=== PATIENT | male | born 1970 | race Caucasian/White ===

== ENCOUNTER → 2017-03-20 | Outpatient (CLI) | payer OTHER ==
[~2017-03-20] MED LIST: ALBUTEROL0.09 MG/A2 INH; ATIVAN0.5 MG PO; ATIVAN2 MG PO; AUGMENTIN 875875 MG PO; BACTRIM DS 8001 TA1 PO; BUSPAR15 MG PO; CIPRO500 MG PO; CIPROFLOXACIN500 MG PO; CLARITIN10 MG PO; CLEOCIN150 MG PO; CORICIDIN COUGH1 TAB PO; Ciprofloxacin500 MG PO; DOXYCYCLINE100 M3 PO; FLONASE ALLERG9.9 ML NS; HYDROCODONE BIT1 T11 PO; HYDROXYZINE PAM50 MG PO; IBU800 M1 PO; LEADER NIC21 MG/24 H TD; LORAZEPAM2 MG PO; MILLIPRED5 MG PO; MOBIC15 MG PO; MOBIC7.5 MG PO; MOTRIN800 MG PO; NASAL DECONGEST15 ML NAS; NORCO 325 MG-51 TAB PO; PERCOCET 325 MG1 TA4 PO; PREDNICOT10 MG PO; PREDNICOT20 MG PO; PREDNISONE10 MG PO; PRILOSEC20 M2 PO; PROAIR HFA0.09 MG/AC INH; PROAIR HFA8.5 GM IH; PROVENTIL0.09 MG/A1 INH; QVAR INH; QVAR0.08 MG/AC INH; SEROQUEL50 MG PO; SYMBICORT1 AER INH; TESSALON PERLE200 MG PO; TRAMADOL HCL50 MG PO; TRAZODONE HCL300 MG PO; TRAZODONE HCL50 MG PO; TRIMOX500 MG PO; VIBRAMYCIN100 MG PO; VICO75300 PO; VICODIN 5/500 505 MG PO; Ventolin 02.5 MG/3 M INH; ZITHROMAX Z PA250 MG PO; ZOFRAN4 MG PO
== END | disposition home or self-care (01) ==
LOC: RAD 16:25
DX: M51.36 Other intervertebral disc degeneration, lumbar region (principal); M50.30 Other cervical disc degeneration, unspecified cervical region; M48.07 Spinal stenosis, lumbosacral region

== ENCOUNTER 2018-04-03 18:27 | Emergency (ER) | payer OTHER ==
[~2018-04-03] VITALS: Ht 193 cm; Wt 97.5 kg
--- NOTE | ~2018-04-03 | EKG ---
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
[2018-04-03] MEDS ORDERED: MINIPRESS5 M1 PO (18:38)
[2018-04-03] MEDS ORDERED: GABAPENTIN800 MG PO (18:39)
[2018-04-03] MEDS ORDERED: SUBOXONE 8 MG-1 EACH SL (18:39)
[2018-04-03] MEDS ORDERED: CYCLOBENZAPRINE10 MG PO (18:40)
[2018-04-03] MEDS ORDERED: VITAMIN D50000 UNIT PO (18:40)
[2018-04-03] MEDS ORDERED: HYDROXYZINE PAM50 MG PO (18:40)
[2018-04-03] MEDS ORDERED: Carafate1 GM PO (18:40)
[2018-04-03 19:39] LABS: BASO # 0.1 10*3/uL (0.0-0.1); BASO % 0.8 % (0.0-1.0); EOS # 0.2 10*3/uL (0.0-0.4); EOS % 1.9 % (1.0-4.0); HEMATOCRIT 44.4 % (42.0-52.0); HEMOGLOBIN 15.2 g/dl (14.0-18.0); LYMPH # 1.4 10*3/uL (1.3-4.4); LYMPH % 17.8 % (27.0-41.0); MEAN CELL VOLUME 90.1 fl (80.0-94.0); MEAN CORPUSCULAR HGB 30.8 pg (27.0-31.0); MEAN CORPUSCULAR HGB CONC 34.2 g/dl (33.0-37.0); MEAN PLATELET VOLUME 8.4 fl (9.6-12.3); MONO # 0.8 10*3/uL (0.1-1.0); MONO % 9.4 % (3.0-9.0); NEUT # 5.6 10*3/uL (2.3-7.9); NEUT % 69.8 % (47.0-73.0); PLATELET COUNT AUTOMATED 249 10*3/uL (130-400); RED BLOOD COUNT 4.93 10*6/uL (4.50-5.90); RED CELL DISTRI WIDTH 18.4 % (0-14.5)
[2018-04-03 19:55] LABS: ALBUMIN 3.7 gm/dl (3.1-4.5); ALKALINE PHOSPHATASE 75 U/L (45-117); BUN 6 mg/dl (7-24); CHLORIDE 98 mmol/L (98-107); CREATININE 0.56 mg/dL (0.70-1.30); SGOT/AST 20 IU/L (3-35); SGPT/ALT 22 U/L (12-78); SODIUM 138 mmol/L (136-145); TOTAL PROTEIN 7.5 gm/dL (6.4-8.2)
[2018-04-03 19:56] LABS: TROPONIN I 0.025 ng/ml (<0.045)
[2018-04-03] MEDS ORDERED: DELTASONE20 M1 PO (20:52)
[2018-04-03] MEDS ORDERED: VIBRAMYCIN100 MG PO (20:52)
== END 2018-04-03 21:10 | disposition home or self-care (01) ==
LOC: ED 18:27
PROVIDERS: Physician Assistant
DX: S22.41XA Multiple fractures of ribs, right side, initial encounter for closed fracture (principal); F17.200 Nicotine dependence, unspecified, uncomplicated; Z91.011 Allergy to milk products; Z79.899 Other long term (current) drug therapy; W19.XXXA Unspecified fall, initial encounter; Y93.89 Activity, other specified; Y92.89 Other specified places as the place of occurrence of the external cause; Y99.8 Other external cause status

== ENCOUNTER → 2018-06-05 | Outpatient (CLI) | payer OTHER ==
[~2018-06-05] MED LIST changes: +CYCLOBENZAPRINE10 MG PO; +Carafate1 GM PO; +DELTASONE20 M1 PO; +GABAPENTIN800 MG PO; +MINIPRESS5 M1 PO; +SUBOXONE 8 MG-1 EACH SL; +VITAMIN D50000 UNIT PO
[2018-06-05 18:25] LABS: BILIRUBIN NEGATIVE (NEGATIVE); BLOOD NEGATIVE (NEGATIVE); CLARITY CLEAR (CLEAR); COLOR YELLOW (YELLOW); GLUCOSE NEGATIVE (NEGATIVE); KETONE NEGATIVE (NEGATIVE); LEUKO ESTERASE NEGATIVE (NEGATIVE); NITRITE NEGATIVE (NEGATIVE); UROBILINOGEN 0.2 E.U./dl (0.2-1.0)
[2018-06-05 18:26] LABS: BASO # 0.1 10*3/uL (0.0-0.1); EOS # 0.2 10*3/uL (0.0-0.4); EOS % 2.9 % (1.0-4.0); HEMATOCRIT 40.1 % (42.0-52.0); LYMPH # 2.2 10*3/uL (1.3-4.4); LYMPH % 29.5 % (27.0-41.0); MEAN CELL VOLUME 93.7 fl (80.0-94.0); MEAN CORPUSCULAR HGB 30.4 pg (27.0-31.0); MEAN CORPUSCULAR HGB CONC 32.4 g/dl (33.0-37.0); MEAN PLATELET VOLUME 8.8 fl (9.6-12.3); MONO # 0.7 10*3/uL (0.1-1.0); MONO % 9.5 % (3.0-9.0); NEUT # 4.2 10*3/uL (2.3-7.9); NEUT % 56.8 % (47.0-73.0); PLATELET COUNT AUTOMATED 277 10*3/uL (130-400); RED BLOOD COUNT 4.28 10*6/uL (4.50-5.90); RED CELL DISTRI WIDTH 15.1 % (0-14.5); WHITE BLOOD COUNT 7.3 10*3/uL (4.8-10.8)
[2018-06-05 18:44] LABS: ALBUMIN 3.4 gm/dl (3.1-4.5); ALKALINE PHOSPHATASE 84 U/L (45-117); BUN 8 mg/dl (7-24); CHLORIDE 101 mmol/L (98-107); CHOLESTEROL 137 mg/dL (<200); CREATININE 0.68 mg/dL (0.70-1.30); HDL CHOLESTEROL 42 mg/dl (40-60); LDL CHOLESTEROL 85 mg/dL (9-159); SGOT/AST 14 IU/L (3-35); SGPT/ALT 20 U/L (12-78); SODIUM 137 mmol/L (136-145); TRIGLYCERIDES 48 mg/dl (<150); VLDL CHOLESTEROL 10 mg/dL (6-40)
[2018-06-06 12:07] LABS: HEPATITIS B SURFACE AG Negative (Negative); HEPATITIS C VIRUS ANTIBODY <0.1 s/co (0.0-0.9)
== END | disposition home or self-care (01) ==
LOC: LAB 17:53
DX: Z00.01 Encounter for general adult medical examination with abnormal findings (principal); F11.20 Opioid dependence, uncomplicated

== ENCOUNTER 2018-08-28 16:28 | Inpatient (IN) | payer OTHER ==
[~2018-08-28] VITALS: Ht 190.5 cm; Wt 88.9 kg
--- NOTE | ~2018-08-28 | EKG ---
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
--- NOTE | ~2018-08-28 | EKG ---
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
--- NOTE | ~2018-08-28 | EKG ---
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
[~2018-08-28 16:28] MED LIST changes: +FLONASE ALLERG9.9 ML NAS; -FLONASE ALLERG9.9 ML NS; +PRILOSEC20 M1 PO; -PRILOSEC20 M2 PO; -PROAIR HFA8.5 GM IH; +PROAIR HFA8.5 GM INH; +VISTARIL50 MG PO
[2018-08-28 16:44] VITALS: BP 139/70
[2018-08-28 17:06] LABS: BASO # 0.1 10*3/uL (0.0-0.1); BASO % 1.1 % (0.0-1.0); EOS # 0.2 10*3/uL (0.0-0.4); EOS % 3.3 % (1.0-4.0); HEMATOCRIT 45.8 % (42.0-52.0); HEMOGLOBIN 15.5 g/dl (14.0-18.0); LYMPH # 1.5 10*3/uL (1.3-4.4); LYMPH % 23.3 % (27.0-41.0); MEAN CELL VOLUME 89.1 fl (80.0-94.0); MEAN CORPUSCULAR HGB 30.2 pg (27.0-31.0); MEAN CORPUSCULAR HGB CONC 33.8 g/dl (33.0-37.0); MEAN PLATELET VOLUME 9.2 fl (9.6-12.3); MONO # 0.5 10*3/uL (0.1-1.0); NEUT # 4.1 10*3/uL (2.3-7.9); NEUT % 64.1 % (47.0-73.0); PLATELET COUNT AUTOMATED 235 10*3/uL (130-400); RED BLOOD COUNT 5.14 10*6/uL (4.50-5.90); RED CELL DISTRI WIDTH 14.6 % (0-14.5); WHITE BLOOD COUNT 6.4 10*3/uL (4.8-10.8)
[2018-08-28 17:15] LABS: ACT PARTIAL THROMBO TIME 25.7 SECONDS (20.8-31.5)
[2018-08-28 17:24] LABS: ALBUMIN 3.4 gm/dl (3.1-4.5); ALKALINE PHOSPHATASE 71 U/L (45-117); BUN 6 mg/dl (7-24); CHLORIDE 100 mmol/L (98-107); CREATININE 0.64 mg/dL (0.70-1.30); LIPASE 66 U/L (73-393); POTASSIUM 3.6 mmol/L (3.5-5.1); SGOT/AST 18 IU/L (3-35); SGPT/ALT 21 U/L (12-78); SODIUM 136 mmol/L (136-145); TOTAL PROTEIN 7.2 gm/dL (6.4-8.2)
[2018-08-28 17:25] LABS: TROPONIN I < 0.015 ng/ml (<0.045)
[2018-08-28 17:36] VITALS: BP 121/66
[2018-08-28 18:58] VITALS: BP 133/58
[2018-08-28 21:00] VITALS: BP 136/86
[2018-08-29] VITALS: BP 152/87
[2018-08-29 07:21] LABS: BASO % 0.7 % (0.0-1.0); HEMATOCRIT 44.8 % (42.0-52.0); LYMPH # 0.7 10*3/uL (1.3-4.4); MEAN CELL VOLUME 88.9 fl (80.0-94.0); MEAN CORPUSCULAR HGB 29.8 pg (27.0-31.0); MEAN CORPUSCULAR HGB CONC 33.5 g/dl (33.0-37.0); MONO # 0.1 10*3/uL (0.1-1.0); MONO % 1.6 % (3.0-9.0); NEUT # 3.6 10*3/uL (2.3-7.9); NEUT % 81.5 % (47.0-73.0); PLATELET COUNT AUTOMATED 231 10*3/uL (130-400); RED BLOOD COUNT 5.04 10*6/uL (4.50-5.90); RED CELL DISTRI WIDTH 14.7 % (0-14.5); WHITE BLOOD COUNT 4.4 10*3/uL (4.8-10.8)
[2018-08-29 07:30] LABS: ACT PARTIAL THROMBO TIME 25.9 SECONDS (20.8-31.5)
[2018-08-29 07:48] LABS: ALBUMIN 3.3 gm/dl (3.1-4.5); ALKALINE PHOSPHATASE 66 U/L (45-117); BUN 8 mg/dl (7-24); CHLORIDE 103 mmol/L (98-107); CHOLESTEROL 145 mg/dL (<200); CREATININE 0.57 mg/dL (0.70-1.30); FREE T4 1.16 ng/dl (0.76-1.46); HDL CHOLESTEROL 29 mg/dl (40-60); LDL CHOLESTEROL 101 mg/dL (9-159); SGOT/AST 19 IU/L (3-35); SGPT/ALT 21 U/L (12-78); SODIUM 138 mmol/L (136-145); TOTAL PROTEIN 6.7 gm/dL (6.4-8.2); TRIGLYCERIDES 76 mg/dl (<150); VLDL CHOLESTEROL 15 mg/dL (6-40)
[2018-08-29 07:54] LABS: THYROID STIM HORMONE (HS) 0.402 uIU/ml (0.358-4.75)
[2018-08-29 08:00] VITALS: BP 148/68
[2018-08-29 08:47] LABS: VITAMIN D, 25-HYDROXY 47.8 ng/mL (30-100)
[2018-08-29 12:00] VITALS: BP 160/89
[2018-08-29 16:00] VITALS: BP 162/84
[2018-08-29 20:00] VITALS: BP 169/70
[2018-08-30] VITALS: BP 161/69
[2018-08-30 06:12] LABS: BASO # 0.1 10*3/uL (0.0-0.1); BASO % 0.9 % (0.0-1.0); EOS % 0.7 % (1.0-4.0); HEMATOCRIT 41.6 % (42.0-52.0); HEMOGLOBIN 13.9 g/dl (14.0-18.0); LYMPH # 1.3 10*3/uL (1.3-4.4); MEAN CELL VOLUME 89.7 fl (80.0-94.0); MEAN CORPUSCULAR HGB CONC 33.4 g/dl (33.0-37.0); MEAN PLATELET VOLUME 9.6 fl (9.6-12.3); MONO # 0.4 10*3/uL (0.1-1.0); NEUT # 3.7 10*3/uL (2.3-7.9); NEUT % 67.2 % (47.0-73.0); PLATELET COUNT AUTOMATED 222 10*3/uL (130-400); RED BLOOD COUNT 4.64 10*6/uL (4.50-5.90); RED CELL DISTRI WIDTH 14.4 % (0-14.5); WHITE BLOOD COUNT 5.5 10*3/uL (4.8-10.8)
[2018-08-30 06:39] LABS: BUN 9 mg/dl (7-24); CHLORIDE 99 mmol/L (98-107); CREATININE 0.55 mg/dL (0.70-1.30); POTASSIUM 3.3 mmol/L (3.5-5.1); SODIUM 137 mmol/L (136-145)
[2018-08-30 08:00] VITALS: BP 150/70
[2018-08-30 12:00] VITALS: BP 152/73
== END 2018-08-30 16:00 | disposition home or self-care (01) | DRG 445 ==
LOC: ED 16:28 → 4E 19:40 → EDHOLD 19:40 → 4E 20:49
PROVIDERS: Emergency Medicine; Family Medicine; Internal Medicine; ADMIT Internal Medicine
DX: K80.20 Calculus of gallbladder without cholecystitis without obstruction (principal); J44.1 Chronic obstructive pulmonary disease with (acute) exacerbation; R79.82 Elevated C-reactive protein (CRP); F12.10 Cannabis abuse, uncomplicated; J30.2 Other seasonal allergic rhinitis; J44.9 Chronic obstructive pulmonary disease, unspecified; E55.9 Vitamin D deficiency, unspecified; F17.210 Nicotine dependence, cigarettes, uncomplicated; K21.9 Gastro-esophageal reflux disease without esophagitis; F32.9 Major depressive disorder, single episode, unspecified; F41.1 Generalized anxiety disorder; G89.29 Other chronic pain; Z71.6 Tobacco abuse counseling; Z91.011 Allergy to milk products; Z82.3 Family history of stroke; Z82.0 Family history of epilepsy and other diseases of the nervous system; Z79.899 Other long term (current) drug therapy

== ENCOUNTER 2018-10-13 14:28 | Emergency (ER) | payer OTHER ==
[~2018-10-13] VITALS: Ht 190.5 cm; Wt 93.0 kg
[2018-10-13 14:58] LABS: BASO # 0.1 10*3/uL (0.0-0.1); BASO % 0.8 % (0.0-1.0); EOS # 0.2 10*3/uL (0.0-0.4); EOS % 1.7 % (1.0-4.0); HEMATOCRIT 42.2 % (42.0-52.0); HEMOGLOBIN 14.4 g/dl (14.0-18.0); LYMPH # 1.8 10*3/uL (1.3-4.4); LYMPH % 20.6 % (27.0-41.0); MEAN CELL VOLUME 89.8 fl (80.0-94.0); MEAN CORPUSCULAR HGB 30.6 pg (27.0-31.0); MEAN CORPUSCULAR HGB CONC 34.1 g/dl (33.0-37.0); MEAN PLATELET VOLUME 8.8 fl (9.6-12.3); MONO # 0.8 10*3/uL (0.1-1.0); MONO % 9.5 % (3.0-9.0); NEUT # 5.8 10*3/uL (2.3-7.9); NEUT % 67.1 % (47.0-73.0); PLATELET COUNT AUTOMATED 415 10*3/uL (130-400); RED CELL DISTRI WIDTH 16.3 % (0-14.5); WHITE BLOOD COUNT 8.7 10*3/uL (4.8-10.8)
[2018-10-13 15:10] LABS: ACT PARTIAL THROMBO TIME 25.3 SECONDS (20.8-31.5); INTERNATIONAL NORM RATIO 0.9 (2.0-3.5)
[2018-10-13 15:21] LABS: ALBUMIN 3.8 gm/dl (3.1-4.5); ALKALINE PHOSPHATASE 90 U/L (45-117); BUN 13 mg/dl (7-24); CHLORIDE 100 mmol/L (98-107); CREATININE 0.72 mg/dL (0.70-1.30); POTASSIUM 3.9 mmol/L (3.5-5.1); SGOT/AST 23 IU/L (3-35); SGPT/ALT 26 U/L (12-78); SODIUM 136 mmol/L (136-145); TOTAL PROTEIN 8.1 gm/dL (6.4-8.2)
[2018-10-13] MEDS ORDERED: AUGMENTIN 875-875 MG PO (15:52)
== END 2018-10-13 15:58 | disposition left against medical advice (07) ==
LOC: ED 14:28
PROVIDERS: Emergency Medicine
DX: L03.115 Cellulitis of right lower limb (principal); K21.9 Gastro-esophageal reflux disease without esophagitis; J44.9 Chronic obstructive pulmonary disease, unspecified; F17.210 Nicotine dependence, cigarettes, uncomplicated; Z79.899 Other long term (current) drug therapy

== ENCOUNTER 2018-11-17 20:57 | Inpatient (IN) | payer OTHER ==
[~2018-11-17] VITALS: Ht 190.5 cm; Wt 94.4 kg
--- NOTE | ~2018-11-17 | EKG ---
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
--- NOTE | ~2018-11-17 | O ---
[place], [place] O[facility]ATIVE NOTE [id number] UNIT #: [id number] ROOM: 408 DOCTOR: JOE PERDUEMEEK Pinto BIRTHDATE: [birth year] DOS: 11/18/2018 SURGEON: Dr. Diaz. ASSISTANTS: 1. Genaro Ricardo, Fellow. 2. Cathy Aldrich, PGY1. PREOPERATIVE DIAGNOSES: 1. Osteomyelitis, medial malleolus. 2. Painful hardware x 3 K-wires medial malleolus. 3. Osteomyelitis, lateral malleolus. 4. Painful hardware screws and plates lateral malleolus all the right ankle. POSTOPERATIVE DIAGNOSES: 1. Osteomyelitis, medial malleolus. 2. Painful hardware x 3 K-wires medial malleolus. 3. Osteomyelitis, lateral malleolus. 4. Painful hardware screws and plates lateral malleolus all the right ankle. PROCEDURES: 1. Incision and drainage, bone debridement with a bone biopsy, right medial malleolus. 2. Removal of hardware, 3 K-wires right medial malleolus. 3. Incision and drainage of bone debridement and bone biopsy of the right lateral malleolus. 4. Incision and drainage with removal of hardware of the right lateral malleolus. DESCRIPTION OF PROCEDURE: The patient was seen in preoperative holding area, appropriate site marking was performed. The patient concurred with the consent, site marking and preoperative management. He was brought to OR, placed on the OR table where anesthesia was achieved. Once the anesthesia achieved, appropriate timeout was performed, everybody in the room concurred with the appropriate timeout. At this time, right foot and leg were prepped and draped in sterile fashion. Under fluoroscopic guidance, incision and drainage made over the medial malleolus and at this point in time it was carried down to the bone. At this time, bone was debrided extensively with rongeurs, curettes, excising and resecting bone on the medial malleolus. Bone was sent for Gram stain, aerobic, anaerobic, fungal acid fast as well as a biopsy of the bone on the right. At this time, this was irrigated with a significant amount of saline. At this time, all the tissues looked to be pretty pink, healthy in nature, maybe some surface infection, but it did not appear to be deep or septic in my opinion. Next, at this time, under fluoroscopic guidance 3 different K-wires were identified. REMOVAL OF PAINFUL HARDWARE: Under fluoroscopic guidance, three separate K-wires. Bone was debrided with a rongeur removing these K wires and each K-wire was removed in total. The area was flushed with copious amounts of sterile saline and vancomycin powder was laid in the wound and the skin with [place], [place] OPERATIVE NOTE NAME: DOTTIE LEONARD UNIT #: [id number] ROOM: [facility] DOCTOR: MEEK DIAZ DPM BIRTHDATE: [birth year] deep tissues were closed with 0 Vicryl and skin was closed with 2-0 nylon. REMOVAL OF PAINFUL HARDWARE, LATERAL MALLEOLUS, RIGHT: At this time, an incision was made over the previous incision deep to the same plane removing soft tissue. At this time, plates and screws were exposed and they were removed using osteotomes, mallets, screwdriver removing the plate and 4 screws. This successfully removed. INCISION AND DRAINAGE, BONE DEBRIDEMENT AND BONE BIOPSY OF RIGHT LATERAL MALLEOLUS. At this time, using a curette and rongeur, the bone was debrided extensively. Bone was harvested for Gram stain, aerobic, anaerobic, fungal acid fast with osteotomes and curette debriding the bone to pink, healthy, granular bone. Once the Gram stain, aerobic, anaerobic, fungal cultures and bone was sent for biopsy of the lateral malleolus of the right. Next, irrigation was used irrigating the area very nicely. Vancomycin was used in the wound and skin with the deep tissues was closed with 0 Vicryl and skin was closed with 2-0 nylon. The surgical wounds were dressed with Betadine-soaked Adaptic, 4 x 4s and Demetrio in a sterile compressive fashion. The patient was immobilized in a BK cast to keep his ankle from range of motion allowing the wound to heal much more in a stable environment. He tolerated the procedure and anesthesia well, left the OR with vital signs stable and vascular status intact. MEEK DIAZ DPM CM:OPRECORD:OPERATIVE NOTE [id number] MEEK DIAZ DPM 12/04/18 0710 interface
--- NOTE | ~2018-11-17 | WRIGHTHP ---
[place], [place] PATIENT HISTORY AND PHYSICAL EXAM [id number] UNIT #: [id number] ROOM: 408 DOCTOR: MEEK DIAZ DPM BIRTHDATE: [birth year] DOS: 11/18/2018 INDICATION NOTE The patient is admitted to the hospital for infected right ankle. The patient underwent an open reduction and internal fixation approximately [address] Rice[address] Subsequently, the patient came to my office several years ago with significant amount of pain, malalignment and deformity of his right ankle. At that time, the patient refreshed my memory and telling me that we are talking about total ankle replacement after removing the hardware, biopsying the bone. Subsequently, I became ill and the patient has not followed up and then he was admitted to the hospital for infected right ankle. With this in mind, the patient has pain upon standing and ambulation activity, considered to be a right infected ankle. Although his labs are not really bad, more clinically painful right ankle, red, hot, swollen right ankle. At this point in time, based on an imaging, clinical evaluation and based on history with the presume that he has an infected bone of his right medial and lateral malleolus of his right ankle joint. With this in mind, he has agreed to the consent. He has agreed to the perioperative management. He has agreed to the site marking in the preoperative holding area. We discussed pros, cons, risks, benefits, overcorrection, undercorrection, recurrence, numbness, infection, worsening, need for amputation, limb loss, etc. And that all of this could occur, understands the risks involved. He would like to have a total ankle replacement done and so we would work it up following this surgery based on how this goes. With this in mind, he agreed to surgery, consent, perioperative management. MEEK DIAZ DPM CM:HISPHYS:PATIENT HISTORY AND PHYSICAL EXAMINATION 1646 2149 MEEK DIAZ DPM 12/04/18 0705 interface
--- NOTE | ~2018-11-17 | EKG ---
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
--- NOTE | ~2018-11-17 | PR ---
[place], [place] PROGRESS NOTE NAME: DOTTIE LEONARD [facility] #: [id number] UNIT #: [id number] ROOM: 408 DOCTOR: SHAY DU DPM BIRTHDATE: [birth year] DOS: 11/23/2018 SUBJECTIVE: The patient was seen for followup postop right ankle. The patient is resting comfortably in bed. OBJECTIVE: The patient's compression cast is intact. No breakthrough bleeding. Capillary fill time normal to all digits of the right foot. Results of bone biopsy consistent with osteomyelitis. ASSESSMENT: Osteomyelitis, right ankle and post incision and drainage of abscess. PLAN: The patient will be set up for home IV for 6 weeks and discharged on Sunday. We will follow the patient accordingly. The patient will reappoint with Dr. Butterfield at the office on Sunday. SHAY DU DPM CM:PNALESSANDRA [id number] SHAY DU DPM 11/23/18 1445 interface
--- NOTE | ~2018-11-17 | PR ---
[place], [place] PROGRESS NOTE NAME: DOTTIE LEONARD UNIT #: [id number] ROOM: 408 DOCTOR: JENIFFER HOLLIS MD BIRTHDATE: [birth year] DOS: Attestation to the progress note done by Shira Qureshi on 11/22/2018. I agree with the assessment and plan done by the resident. I held in formulating the plan, reviewed the labs and imaging, had a [id number] encounter, made the necessary changes in the note. Jeniffer Hollis MD CM:PNTRANS [id number] JENIFFER HOLLIS MD 12/28/18 1445 interface
--- NOTE | ~2018-11-17 | CON ---
[place], [place] REPORT OF CONSULTATION NAME: DOTTIE LEONARD UNIT #: [id number] ROOM: 408 DOCTOR: MEEK DIAZ DPM BIRTHDATE: [birth year] DATE: 11/18/18 ADDENDUM TO RESIDENT CONSULT: I reviewed with the resident and I am in agreement. MEEK DIAZ DPM CM:CONSTR:REPORT OF CONSULTATION 11/20/181057 LAINEY LATIF MIS.R
--- NOTE | ~2018-11-17 | WRIGHTHP ---
[place], [place] PATIENT HISTORY AND PHYSICAL EXAM [id number] UNIT #: [id number] ROOM: 408 DOCTOR: MEEK DIAZ DPM BIRTHDATE: [birth year] DOS: 11/18/2018 LOWER EXTREMITY PHYSICAL EXAM: VASCULAR: He has had noninvasive vascular studies done demonstrating he has some vascular disease as perfusion to his right is better than his left and adequate good perfusion to his right. He has palpable pedal pulses, DP and PT arteries on the right 2/4 with good cap fill time. NEUROLOGICAL: He has intact epicritic sensation on the right lower extremity. DERMATOLOGICAL: He has a right open medial malleolar abrasion. There is some fluctuance over the medial malleolus. There are 3 K wires that are crowded and sticking through the bone probably tenting the skin, irritating the skin on the right. There is no purulence. No open wounds at this point in time, but it was like an abrasion injury, medial malleolus approximately 1 cm in diameter directly over the medial malleolus area suggestive of irritation, infection of the right medial malleolus. MUSCULOSKELETAL: There is crepitus. There is pain upon range of motion of the ankle joint. There is audible and palpable crepitus, right foot. ORTHOPEDIC EXAM: End-stage arthritis, infected bone on the medial and lateral malleolus, possible osteomyelitis, medial and lateral malleolus and painful hardware medial and lateral malleolus, all of the right. MEEK DIAZ DPM CM:HISPHYS:PATIENT HISTORY AND PHYSICAL EXAMINATION 1646 2156 MEEK DIAZ DPM 12/04/18 0706 interface
--- NOTE | ~2018-11-17 | EKG ---
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
[~2018-11-17 20:57] MED LIST changes: +AUGMENTIN 875-875 MG PO
[2018-11-17 21:02] VITALS: BP 185/84
[2018-11-17 21:11] VITALS: BP 148/87
[2018-11-17 21:11] LABS: BASO # 0.1 10*3/uL (0.0-0.1); EOS # 0.1 10*3/uL (0.0-0.4); EOS % 1.8 % (1.0-4.0); HEMATOCRIT 45.9 % (42.0-52.0); HEMOGLOBIN 14.8 g/dl (14.0-18.0); LYMPH # 1.4 10*3/uL (1.3-4.4); LYMPH % 18.5 % (27.0-41.0); MEAN CELL VOLUME 99.1 fl (80.0-94.0); MEAN CORPUSCULAR HGB CONC 32.2 g/dl (33.0-37.0); MEAN PLATELET VOLUME 9.1 fl (9.6-12.3); MONO # 0.6 10*3/uL (0.1-1.0); MONO % 8.7 % (3.0-9.0); NEUT # 5.1 10*3/uL (2.3-7.9); NEUT % 69.9 % (47.0-73.0); PLATELET COUNT AUTOMATED 381 10*3/uL (130-400); RED BLOOD COUNT 4.63 10*6/uL (4.50-5.90); RED CELL DISTRI WIDTH 17.2 % (0-14.5); WHITE BLOOD COUNT 7.3 10*3/uL (4.8-10.8)
[2018-11-17 21:28] LABS: ALBUMIN 3.7 gm/dl (3.1-4.5); ALKALINE PHOSPHATASE 82 U/L (45-117); BUN 7 mg/dl (7-24); CHLORIDE 96 mmol/L (98-107); CREATININE 0.65 mg/dL (0.70-1.30); SGOT/AST 24 IU/L (3-35); SGPT/ALT 22 U/L (12-78); SODIUM 136 mmol/L (136-145); TOTAL PROTEIN 7.9 gm/dL (6.4-8.2)
[2018-11-17 21:28] LABS: ACT PARTIAL THROMBO TIME 23.9 SECONDS (20.8-31.5); INTERNATIONAL NORM RATIO 0.9 (2.0-3.5)
[2018-11-17 21:29] LABS: TROPONIN I < 0.015 ng/ml (<0.045)
[2018-11-17 22:42] VITALS: BP 130/80
[2018-11-18] VITALS (13 sets, daily range): BP systolic 117–156; BP diastolic 58–85
--- NOTE | 2018-11-18 00:35 | NUR ---
A 48, admitted to 4E, under the services of YAIR Skaggs DO with a diagnosis of OSTEOMYELITIS OF R ANKLE, COPD EXACERBATION. Chief complaint is INFECTION. Patient arrived via stretcher from ER. Monitor applied. Initial assessment completed. Vital signs taken and recorded. YAIR SKAGGS DO notified of admission to the unit. Orders received. See assessment for past medical history, medications and allergies. Patient and/or family oriented to unit. [facility] visitation policy reviewed. Clothing/patient valuable form completed. SHAWANDA AGUILAR
[2018-11-18] MEDS ORDERED: VENTOLIN 02.5 MG/3 M INH (01:06)
[2018-11-18] MEDS ORDERED: PANTOPRAZOLE SO40 MG PO (01:07)
[2018-11-18] MEDS ORDERED: B-121000 MCG PO (01:09)
[2018-11-18] MEDS ORDERED: SUBOXONE 8 MG-1 EACH SL (01:09)
[2018-11-18] MEDS ORDERED: NARCAN4 MG NAS (01:10)
[2018-11-18] MEDS ORDERED: B-1100 M1 PO (01:11)
[2018-11-18] MEDS ORDERED: MULTIVITAMINS1 EAC6 PO (01:12)
--- NOTE | 2018-11-18 01:19 | NUR ---
NOTIFIED OF PATIENT'S ARRIVAL ON FLOOR. DISCUSSED ORDER FOR MRI ORDERED FOR TOMORROW AND PATIENT HAVING METAL PARTS IN BL ANKLES. INSTRUCTED TO DISCONTINUE MRI AND ORDER TESTING PER PODIATRY. ALSO DISCUSSED HOME MED REC UP TO DATE PER PT. PATIENT REQUESTING SUBLINGUAL SUBOXONE FILM THAT HE TAKES AT HOME FOR PAIN. PER , PATIENT TO GET PO NORCO PER PRN ORDER.
--- NOTE | 2018-11-18 01:27 | NUR ---
NOTIFIED OF CONSULT. DISCUSSED R ANKLE XRAY RESULTS AND MRI CANCELLED DUE TO METAL IN BL ANKLES PER PT. INSTRUCTED TO KEEP PATIENT NPO AND TO ORDER VENOUS/ARTERIAL STUDIES OF BLE. STATES PODIATRY MAY CONSIDER SURGERY DEPENDING ON RESULTS.
--- NOTE | 2018-11-18 01:43 | NUR ---
NOTIFIED OF PATIENT'S REQUEST FOR HOME MEDS. INSTRUCTED TO ORDER HOME GABAPENTIN, BUSPAR, AND VISTARIL.
--- NOTE | 2018-11-18 03:22 | NUR ---
EARLIER MEDICATIONS APPEAR EFFECTIVE. PATIENT SLEEPING. RESPIRATIONS EASY. NO S/S OF DISTRESS NOTED. WILL MONITOR. CALL LIGHT IN REACH. BED ALARM INTACT.
[2018-11-18 06:33] LABS: HEMATOCRIT 42.5 % (42.0-52.0); HEMOGLOBIN 13.6 g/dl (14.0-18.0); MEAN CELL VOLUME 99.5 fl (80.0-94.0); MEAN CORPUSCULAR HGB 31.9 pg (27.0-31.0); MEAN PLATELET VOLUME 9.4 fl (9.6-12.3); PLATELET COUNT AUTOMATED 355 10*3/uL (130-400); RED BLOOD COUNT 4.27 10*6/uL (4.50-5.90); RED CELL DISTRI WIDTH 17.3 % (0-14.5); WHITE BLOOD COUNT 7.8 10*3/uL (4.8-10.8)
--- NOTE | 2018-11-18 06:53 | NUR ---
HERE TO SEE PATIENT.
--- NOTE | 2018-11-18 07:04 | NUR ---
HERE. INSTRUCTED TO CHANGE VENOUS/ARTERIAL US FROM ROUTINE TO STAT.
[2018-11-18 07:09] LABS: ALBUMIN 3.4 gm/dl (3.1-4.5); BUN 6 mg/dl (7-24); CHLORIDE 99 mmol/L (98-107); CHOLESTEROL 114 mg/dL (<200); HDL CHOLESTEROL 40 mg/dl (40-60); LDL CHOLESTEROL 63 mg/dL (9-159); SGOT/AST 19 IU/L (3-35); SGPT/ALT 19 U/L (12-78); SODIUM 139 mmol/L (136-145); TOTAL PROTEIN 7.2 gm/dL (6.4-8.2); TRIGLYCERIDES 54 mg/dl (<150); VLDL CHOLESTEROL 11 mg/dL (6-40)
[2018-11-18 07:16] LABS: ALKALINE PHOSPHATASE 66 U/L (45-117); FREE T4 1.23 ng/dl (0.76-1.46); THYROID STIM HORMONE (HS) 0.452 uIU/ml (0.358-4.75)
--- NOTE | 2018-11-18 07:16 | NUR ---
THIS RN CALLED DOWN TO ULTRASOUND TO UPDATE ON CHANGE IN PRIORITY ON VENOUS/ARTERIAL US. STATES SHE IS WITH AN OUTPATIENT AND PATIENT SHOULD BE SCANNED AROUND 0800.
[2018-11-18 07:27] LABS: ACT PARTIAL THROMBO TIME 25.7 SECONDS (19.5-32.1); INTERNATIONAL NORM RATIO 0.9 (2.0-3.5)
[2018-11-18 07:46] LABS: TOTAL CELLS COUNTED 100 #CELLS
[2018-11-18 07:47] LABS: PLATELET SUFFICIENCY NORMAL (NORMAL)
[2018-11-18 07:52] LABS: VITAMIN D, 25-HYDROXY 75.7 ng/mL (30-100)
--- NOTE | 2018-11-18 09:00 | NUR ---
Travel Service Consultant in to talk to patient. Patient states lives at home with brother. There are few steps in the home. Physician: nury singh Pharmacy: [facility] Home health services: none Patient's level of ADLs: MINIMAL ASSIST Patient has working utilities: all working DME: cane, home oxygen and portable tanks from [facility] Follow-up physician's appointment after d/c: will be made by hospitalist nurse director upon discharge Does patient want to access PORTAL?: no Discharge plan discussed with patient, patient lives at home with brother, he is independent in adls and uses a cane for ambulation, patient states he will be going home when able, discussed with him VNA and he declines any services at this time, case management will follow. NYLA GONSALEZ
--- NOTE | 2018-11-18 13:00 | NUR ---
PT STATES THAT HE FOUND WALLET AND HAS 7 STRIPS OF SUBOXONE IN WALLET. SUBOXONE TAKEN FROM PT AND SENT TO PHARMACY. PHYSICIAN NOTIFIED.
--- NOTE | 2018-11-18 13:10 | NUR ---
DOTTIE LEONARD [id number] Please refer to the physician's history and physical for past medical history, comorbid conditions, and allergies. Diagnosis: COPD EXACERBATION, OSTEOMYELITIS OF ANKLE, RIGHT Jaswinder Score: 17,AT RISK WOUND DESCRIPTIONS: Wound Number: 1 Location of the wound: RIGHT MEDIAL ANKLE Thickness: Partial Size: 3.1cm X 1.3cm X <0.1cm Tunneling: NONE Undermining: NONE Sinus Tract: NONE Presence of Exudate:NONE Amount: None Color: Red Odor: None Periwound Skin Appearance: Erythema, Edema Wound edges: CLOSED. Pain (associated with wound): TENDER TO TOUCH. How does patient state this happened? PATIENT STATES THERE WAS A "PIMPLE" IN THIS AREA THAT THE PATIENT SCRATCHED OPEN. PATIENT STATES THIS HAPPENED "COUPLE WEEKS AGO" AND WAS ON ANTIBIOTICS. PATIENT STATES "PUSS HAS DRAINED" FROM THIS AREA WITHIN THE PAST WEEK. If wound is on legs/feet or hands, capillary refill time, pulses, color temp, sensation: CAP REFILL < 3 SECONDS. PULSES PALPABLE. RIGHT THIRD TOE BRUISED. PATIEN STATES HE HIT THIS TOE OFF OF HIS COFFEE TABLE AT HOME. Surface the patient is resting on: Position Pro SKIN PREVENTION RECOMMENDATION: 1. Pressure redistribution support surface as appropriate 2. Elevate heels 3. Remove boots/TEDS every shift and reapply 4. Head of bed 30 degrees as tolerated 5. Assess nutrition and hydration 6. Manage moisture 7. Avoid the use of containment devices while in bed 8. Use absorptive products on surfaces limit layers of linens on bed 9. Turn and reposition every 1-2 hours in bed and every 1 hour in chair as tolerated 10. Weight shifts every 15 minutes while up in chair 11. Offloading with pillows or device to keep heels elevated off bed 12. Monitor skin at least every shift 13. Inspect under medical devices twice a day WOUND TREATMENT RECOMMENDATIONS: CONSULT PODIATRY FOR RIGHT MEDIAL ANKLE. IMAGING OF RIGHT MEDIAL ANKLE DUE TO PAIN IN THIS AREA. X-RAY OF RIGHT THIRD TOE TO RULE OUT FRACTURE. CLEANSE RIGHT MEDIAL ANKLE WITH NSS APPLY SUREPREP ALLOW TO DRY AND COVER WITH OPTIFOAM GENTLE.
--- NOTE | 2018-11-18 14:15 | NUR ---
IV discontinued to left arm due to IV site leaking. Pressure applied. Sterile dressing applied. RAFAEL WOLFF
--- NOTE | 2018-11-18 14:30 | NUR ---
IV started left hand with #20 protective cath after 2 attempts. Site prepped with Chloroprep. Sterile dressing applied. Patient tolerated procedure well. IV infusing at 125 cc/hr. RAFAEL WOLFF
--- NOTE | 2018-11-18 14:32 | NUR ---
Dr. Muro notified of wound care recommendations.
--- NOTE | 2018-11-18 18:15 | NUR ---
PT RETURNS FROM SURGERY. ALERT ORIENTED AND APPROPRIATE SPEECH. C/O PAIN TO RIGHT ANKLE. PT CAUGHT UP ON HOME MEDICATIONS AT THIS TIME. PT CURRENTLY ON 5L NC, PULSE OX 93%. IV FLUIDS INFUSING PER ORDER. IV SITE TO RIGHT HAND PATENT, DRESSINGN C/D/I. DRESSING TO RIGHT ANKLE C/D/I. WILL CONTINUE TO MONITOR. CALL LIGHT IN REACH.
--- NOTE | 2018-11-18 18:42 | NUR ---
PT GIVEN NORCO 5-325 MG TAB AT THIS TIME FOR C/O PAIN TO RIGHT ANKLE. WILL MONITOR FOR EFFECTIVENESS. CALL LIGHT IN REACH.
--- NOTE | 2018-11-18 18:50 | NUR ---
PT SUBOXONE STRIPS TAKEN TO PHARMACY, 7 TOTAL STRIPS.
[2018-11-18] MEDS ORDERED: TRAZODONE100 MG PO (21:14)
--- NOTE | 2018-11-18 21:57 | NUR ---
PATIENT ASLEEP IN BED. EARLIER MEDICATIONS APPEAR EFFECTIVE. WILL MONITOR.
[2018-11-19 00:55] VITALS: BP 128/56
--- NOTE | 2018-11-19 01:55 | NUR ---
PATIENT MEDICATED WITH PO NORCO PER PRN ORDER FOR C/O PAIN IN R LOWER EXTREMITY RATED 10/10. STATES EARLIER SUBOXONE HELPED SOME, BUT HAS WORN OFF. WILL MONITOR EFFECTIVENESS. CALL LIGHT LEFT IN REACH.
--- NOTE | 2018-11-19 01:55 | NUR ---
PATIENT MEDICATED WITH PO NORCO PER PRN ORDER FOR C/O PAIN IN R LOWER EXTREMITY RATED 10/10. STATES EARLIER SUBUTEX HELPED SOME, BUT HAS WORN OFF. WILL MONITOR EFFECTIVENESS. CALL LIGHT LEFT IN REACH.
[2018-11-19 03:15] VITALS: BP 125/68
[2018-11-19 03:20] LABS: HEMATOCRIT 39.1 % (42.0-52.0); HEMOGLOBIN 12.5 g/dl (14.0-18.0); MEAN CELL VOLUME 99.5 fl (80.0-94.0); MEAN CORPUSCULAR HGB 31.8 pg (27.0-31.0); PLATELET COUNT AUTOMATED 348 10*3/uL (130-400); RED BLOOD COUNT 3.93 10*6/uL (4.50-5.90); RED CELL DISTRI WIDTH 17.2 % (0-14.5); WHITE BLOOD COUNT 10.3 10*3/uL (4.8-10.8)
[2018-11-19 03:31] LABS: BUN 13 mg/dl (7-24); CHLORIDE 101 mmol/L (98-107); CREATININE 0.68 mg/dL (0.70-1.30); POTASSIUM 4.3 mmol/L (3.5-5.1); SODIUM 139 mmol/L (136-145)
[2018-11-19 03:43] LABS: ATYPICAL LYMPHS 1 % (0-0); PLATELET SUFFICIENCY NORMAL (NORMAL); TOTAL CELLS COUNTED 100 #CELLS
--- NOTE | 2018-11-19 03:48 | NUR ---
NOTIFIED OF VANC TROUGH 21.8. INSTRUCTED TO HOLD 0400 DOSE AND HAVE PHARMACY REPROFILE MEDICATION.
--- NOTE | 2018-11-19 04:58 | NUR ---
NOTIFIED OF PATIENT'S REQUEST FOR PAIN MEDICATION. STATES NORCO HELPED SOME, BUT HE IS STILL UNABLE TO SLEEP. NEW ORDERS TO FOLLOW PER .
--- NOTE | 2018-11-19 05:30 | NUR ---
SPUTUM SPECIMEN SENT TO LAB PER ORDER.
--- NOTE | 2018-11-19 06:47 | NUR ---
PATIENT STATES EARLIER MORPHINE HELPED A LOT MORE. STILL RATING PAIN 7/10. PO NORCO ADMINISTERED AT THIS TIME PER ORDER. WILL MONITOR. CALL LIGHT LEFT IN REACH.
[2018-11-19 08:00] VITALS: BP 138/60
--- NOTE | 2018-11-19 09:00 | NUR ---
case management visits with patient, discussed with him a short term care home for rehab prior to going back home, patient declined, stated he would be returning home, also discussed VNA and he was receptive to this, given choice of companies, he chose [employer], will notify [facility] when patient is medically stable for discharge
--- NOTE | 2018-11-19 09:29 | NUR ---
PRN MORPHINE ALONG WITH ROUTINE SUBUTEX & BUSPAR, FLEXERIL GIVEN FOR RT LEG PAIN 03/01 POST OP - [id number]
--- NOTE | 2018-11-19 10:45 | NUR ---
PT RESTING QUIETLY WITH SHADES DRAWN AFTER MEDICATED.
--- NOTE | 2018-11-19 11:27 | NUR ---
PATIENT'S PHARMACY CALLED TO VERIFY MED DOSAGE - UPDATED IN MED REC
--- NOTE | 2018-11-19 11:32 | NUR ---
DR HAIR CALLED AND DOSE OF VISTARIL UPDATED PER PATIENT'S PHARMACY
[2018-11-19 12:00] VITALS: BP 95/73
--- NOTE | 2018-11-19 12:56 | NUR ---
ID OFFICE AWARE OF CONSULT IS DR PITTMAN WHO IS ROUNDING WITH ID
[2018-11-19 16:00] VITALS: BP 149/51
[2018-11-19 20:00] VITALS: BP 138/63
--- NOTE | 2018-11-19 21:06 | NUR ---
SCHEDULED PO SUBOXONE GIVEN AT THIS TIME. PATIENT RATING PAIN 8/10. WILL MONITOR EFFECTIVENESS. CALL LIGHT IN REACH.
--- NOTE | 2018-11-19 23:39 | NUR ---
IV MORPHINE ADMINISTERED FOR C/O PAIN IN R FOOT RATED 8/10. PO VISTARIL ALSO ADMINISTERED FOR C/O ANXIETY/RESTLESSNESS. WILL MONITOR EFFECTIVENESS. CALL LIGHT LEFT IN REACH.
[2018-11-20] VITALS: BP 139/56
--- NOTE | 2018-11-20 02:08 | NUR ---
PATIENT ASLEEP IN BED. RESPIRATIONS EASY. NO S/S OF DISTRESS NOTED. WILL MONITOR. CALL LIGHT IN REACH.
[2018-11-20 03:30] VITALS: BP 142/64
--- NOTE | 2018-11-20 03:49 | NUR ---
IV MORPHINE ADMINISTERED PER ORDER FOR C/O PAIN IN R FOOT RATED 8/10. PATIENT STATES HE HAD A VERY RESTFUL SLEEP UP UNTIL THE PAIN WOKE HIM UP. WILL MONITOR. CALL LIGHT LEFT IN REACH.
[2018-11-20 05:39] LABS: BASO % 0.1 % (0.0-1.0); HEMATOCRIT 38.6 % (42.0-52.0); HEMOGLOBIN 12.3 g/dl (14.0-18.0); LYMPH # 0.6 10*3/uL (1.3-4.4); LYMPH % 6.4 % (27.0-41.0); MEAN CELL VOLUME 99.2 fl (80.0-94.0); MEAN CORPUSCULAR HGB 31.6 pg (27.0-31.0); MEAN CORPUSCULAR HGB CONC 31.9 g/dl (33.0-37.0); MEAN PLATELET VOLUME 9.3 fl (9.6-12.3); MONO # 0.7 10*3/uL (0.1-1.0); MONO % 7.3 % (3.0-9.0); NEUT # 7.9 10*3/uL (2.3-7.9); NEUT % 85.7 % (47.0-73.0); PLATELET COUNT AUTOMATED 366 10*3/uL (130-400); RED BLOOD COUNT 3.89 10*6/uL (4.50-5.90); RED CELL DISTRI WIDTH 17.2 % (0-14.5); WHITE BLOOD COUNT 9.2 10*3/uL (4.8-10.8)
[2018-11-20 06:06] LABS: BUN 10 mg/dl (7-24); CHLORIDE 105 mmol/L (98-107); CREATININE 0.68 mg/dL (0.70-1.30); POTASSIUM 3.5 mmol/L (3.5-5.1); SODIUM 141 mmol/L (136-145)
--- NOTE | 2018-11-20 06:51 | NUR ---
PT MEDICATED WITH PO NORCO & PO VISTARIL FOR C/O PAIN IN RLE RATED 7/10 AND ANXIETY/RESTLESSNESS. WILL MONITOR.
--- NOTE | 2018-11-20 07:55 | NUR ---
PT RESTING IN BED. REPOSITIONS IN BED. RESP-EASY AND REGULAR. OXYGEN IN USE. C/O R&L LOWER EXTREMITY PAIN RATES PAIN 8 ON PAIN SCALE 0-10. ALSO C/O NECK/BACK SHOULDER PAIN RATES PAIN 8 ON PAIN SCALE 0-10. MEDICATED WITH MORPHINE IV PER PRN ORDER, SEE EMAR. CALL LIGHT IN REACH. SEE SHIFT ASSESSMENT.
--- NOTE | 2018-11-20 08:50 | NUR ---
RESTING IN BED. STATES PAIN MEDICATION HELPS A LITTLE. CHRONIC PAIN. CALL LIGHT IN REACH.
--- NOTE | 2018-11-20 09:00 | NUR ---
case management visits with patient, discussed with him administering iv antibiotics at home or going to a short term [facility] if needed. patient stated he had home iv antibiotics previously and his daughter was able to administer them. he also would like [facility], discussed with him a SNF and he declined this, case management will follow and set up services as needed
--- NOTE | 2018-11-20 09:25 | NUR ---
PT MEDICATED WITH SUBOXONE PO PER ROUTINE ORDER, PT STATES PAIN LEGS ARE CLOSE TO 8 ON PAIN SCALE 0-10. CALL LIGHT IN REACH.
--- NOTE | 2018-11-20 10:36 | NUR ---
PT MEDICATED WITH VISTARIL PO PER PRN ORDER FOR ANXIETY PER PT REQUEST. CALL LIGHT IN REACH.
--- NOTE | 2018-11-20 11:54 | NUR ---
PT STATES VISTARIL HELPED. C/O R&L LEG PAIN AND NECK/R SHOULDER/BACK RATES PAIN 7 1/2 ON PAIN SCALE 0-10 PER PT. MEDICATED WITH MORPHINE IV PER PRN ORDER, SEE EMAR. CALL LIGHT IN REACH.
[2018-11-20 12:00] VITALS: BP 143/63
--- NOTE | 2018-11-20 12:50 | NUR ---
SLEEPING IN BED. RESP-EASY AND REGULAR. MEDICATION SEEMS TO BE HELPING. CALL LIGHT IN REACH.
--- NOTE | 2018-11-20 13:20 | NUR ---
Nursing screen received and chart review completed. Patient admitted with painful right ankle w/ diagnosis of abcess, infected hardware and hardware removal. Patient has declined SNF and will get IV antibiotics thru a family member who is a nurse and home health as indicated. No further OT indicated as patient will receive home health upon d/c home. Recommend OT evaluation in the home. Alexandra Toscano OTR/
--- NOTE | 2018-11-20 14:00 | NUR ---
TOLERATED ROUTINE MEDS WITH NO PROBLEM. CALL LIGHT IN REACH.
[2018-11-20 15:06] LABS: ACID FAST SPEC PROCESSING Tissue Grinding (.)
--- NOTE | 2018-11-20 15:30 | NUR ---
RESTING IN BED. C/O R&L LEG PAIN, RIGHT SHOULDER/NECK AND BACK PAIN, RATES PAIN 8 ON PAIN SCALE 0-10. MEDICATED WITH NORCO PO PER PRN ORDER, SEE EMAR. CALL LIGHT IN REACH. SEE SHIFT AsSESSMENT.
[2018-11-20 16:00] VITALS: BP 170/72
[2018-11-20 17:00] VITALS: BP 150/70
--- NOTE | 2018-11-20 18:00 | NUR ---
MEDICATED WITH MORPHINE IV PER PRN ORDER, SEE EMAR. FOR C/O R&L LEG/FOOT PAIN. ALSO RIGHT SHOULDER NECK AND BACK PAIN ALL HE RATES 8 ON PAIN SCALE 0-10. CALL LIGHT IN REACH.
--- NOTE | 2018-11-20 18:59 | NUR ---
RESTING IN BED. MEDICATION HELPS SOME PER PT. NO NEW C/O. CALL LIGHT I REACH.
[2018-11-20 20:00] VITALS: BP 144/56
[2018-11-21] VITALS: BP 152/68
--- NOTE | 2018-11-21 00:03 | NUR ---
MORPHINE GIVEN PER PT REQUEST FOR C/O GENERALIZED PAIN. BACK, NECK, ARM, LEGS. WILL CONTINUE TO MONITOR.
--- NOTE | 2018-11-21 01:17 | NUR ---
NORCO GIVEN PER PRN ORDER PER PT REQUEST FOR 8/10 PAIN TO RT FOOT, BACK AND NECK. PT STATES MORPHINE MILDLY EFFECTIVE. VISTARIL GIVEN PER PRN ORDER PER PT REQUEST FOR C/O RESTLESSNESS. WILL CONTINUE TO MONITOR/
[2018-11-21 05:56] LABS: BASO % 0.1 % (0.0-1.0); HEMATOCRIT 39.4 % (42.0-52.0); HEMOGLOBIN 12.6 g/dl (14.0-18.0); LYMPH # 0.7 10*3/uL (1.3-4.4); MEAN CELL VOLUME 99.2 fl (80.0-94.0); MEAN CORPUSCULAR HGB 31.7 pg (27.0-31.0); MEAN PLATELET VOLUME 9.4 fl (9.6-12.3); MONO # 0.7 10*3/uL (0.1-1.0); MONO % 7.1 % (3.0-9.0); NEUT % 85.2 % (47.0-73.0); PLATELET COUNT AUTOMATED 366 10*3/uL (130-400); RED BLOOD COUNT 3.97 10*6/uL (4.50-5.90); RED CELL DISTRI WIDTH 17.3 % (0-14.5); WHITE BLOOD COUNT 9.4 10*3/uL (4.8-10.8)
[2018-11-21 06:17] LABS: BUN 11 mg/dl (7-24); CHLORIDE 106 mmol/L (98-107); CREATININE 0.65 mg/dL (0.70-1.30); POTASSIUM 3.4 mmol/L (3.5-5.1); SODIUM 142 mmol/L (136-145)
--- NOTE | 2018-11-21 06:44 | NUR ---
PATIENT MEDICATED WITH PRN NORCO ORDERED FOR C/O RIGHT FOOT PAIN RATED 8/10
--- NOTE | 2018-11-21 08:51 | NUR ---
Shift chart check completed.
--- NOTE | 2018-11-21 09:00 | NUR ---
case management visits with patient, discussed with him a short term senior care for iv antibiotics, patient states he would like to go home, he stated his daughter is not able to help him administer the iv antibiotics but he is able to do them himself. he also has his brother at home that could help if needed. will check with [employer] regarding the cost of the medication when script is obtained, will also notify [facility]
--- NOTE | 2018-11-21 09:15 | NUR ---
VISTARIL GIVEN FOR ANXIETY - GEN PAIN OF BACK, LEG, NECK THAT PER PT WHO IS LAUGHING SAID IS WORSE BECAUSE HE IS IN BED. ASKING HOW SOON HE CAN HAVE MORPHINE & NORCO - ASKED NURSE TO JUST BRING THEM WHEN THEY ARE DUE
--- NOTE | 2018-11-21 10:14 | NUR ---
case management received the script for home iv antibiotics, called [facility], spoke to Sury, script and patient's information faxed for [facility] to check cost of medication, case management will follow
--- NOTE | 2018-11-21 10:26 | NUR ---
PATIENT AGGITATED - REQUESTING MORE PAIN MEDS - MORPHINE GIVEN SAYS PAIN IS 8-9/10.
[2018-11-21 12:00] VITALS: BP 144/68
--- NOTE | 2018-11-21 12:38 | NUR ---
case management contacted [facility], spoke to Nubia, patient's information faxed and [facility] will see patient in the am, a nurse from [facility] will see patient tonight and teach how to administer the iv antibiotics, case management will follow
--- NOTE | 2018-11-21 13:08 | NUR ---
[facility] called and spoke to bridget,informed her that patient may be going home today, will follow
--- NOTE | 2018-11-21 15:30 | NUR ---
case management spoke to Beverly from [facility], insurance has not yet approved patient's home iv antibiotics, Beverly will contact case management when insurance has approved
--- NOTE | 2018-11-21 15:51 | NUR ---
VISTARIL GIVEN FOR ANXIETY
[2018-11-21 16:00] VITALS: BP 150/69
--- NOTE | 2018-11-21 19:30 | NUR ---
BEDSIDE REPORT RECIEVED FROM MICHAELA JACK. PT IS RESTING IN BED AT THIS TIME AND DENIES ANY PAIN OR DISCOMFORT. RESPIRATIONS ARE EASY AND NONLABORED. DRESSING TO RIGHT LEG IS CLEAN/DRY/INTACT. IVF ARE RUNNING @ 125mL/HR. BED IS LOCKED AND IN THE LOWEST POSITION. HE DENIES ANY NEEDS AT THIS TIME. WILL CONTINUE TO MONITOR.
[2018-11-21 20:00] VITALS: BP 153/77
--- NOTE | 2018-11-21 21:37 | NUR ---
PT REQUESTED AND RECIEVED NORCO FOR COMPLAINTS OF 7/10 PAIN TO RIGHT LEG. WILL MONITOR FOR EFFECTIVENESS OF MEDICATION.
--- NOTE | 2018-11-21 23:56 | NUR ---
PT ADMINISTERED PRN MORPHINE FOR C/O PAIN RATED A 9/10. WILL MONITOR FOR EFFECTIVENESS
[2018-11-22] VITALS: BP 155/88
--- NOTE | 2018-11-22 00:30 | NUR ---
PT STATES HIS PAIN IS BEGINNING TO SUBSIDE, PRN MORPHINE EFFECTIVE.
--- NOTE | 2018-11-22 01:32 | NUR ---
PT ADMINISTERED PRN NORCO FOR C/O GENERALIZED PAIN. WILL MONITOR FOR EFFECTIVENESS.
--- NOTE | 2018-11-22 01:49 | NUR ---
PT IS ASLEEP IN BED AT THIS TIME WITH NO S/S OF DISTRESS NOTED . PRN NORCO EFFECTIVE.
--- NOTE | 2018-11-22 05:10 | NUR ---
Pt will follow up with podiatry since they performed the surgery.
[2018-11-22 06:24] LABS: BASO % 0.1 % (0.0-1.0); HEMATOCRIT 36.6 % (42.0-52.0); HEMOGLOBIN 11.9 g/dl (14.0-18.0); LYMPH # 0.9 10*3/uL (1.3-4.4); LYMPH % 9.9 % (27.0-41.0); MEAN CELL VOLUME 99.7 fl (80.0-94.0); MEAN CORPUSCULAR HGB 32.4 pg (27.0-31.0); MEAN CORPUSCULAR HGB CONC 32.5 g/dl (33.0-37.0); MEAN PLATELET VOLUME 9.3 fl (9.6-12.3); MONO # 0.7 10*3/uL (0.1-1.0); MONO % 7.8 % (3.0-9.0); NEUT # 7.1 10*3/uL (2.3-7.9); NEUT % 81.6 % (47.0-73.0); PLATELET COUNT AUTOMATED 326 10*3/uL (130-400); RED BLOOD COUNT 3.67 10*6/uL (4.50-5.90); RED CELL DISTRI WIDTH 17.2 % (0-14.5); WHITE BLOOD COUNT 8.7 10*3/uL (4.8-10.8)
[2018-11-22 06:42] LABS: BUN 10 mg/dl (7-24); CHLORIDE 102 mmol/L (98-107); CREATININE 0.55 mg/dL (0.70-1.30); POTASSIUM 3.9 mmol/L (3.5-5.1); SODIUM 142 mmol/L (136-145)
--- NOTE | 2018-11-22 08:29 | NUR ---
case management contacted [facility] regarding home iv antibiotic. spoke to Katherin, olegert for home medication was initiated yesterday, no update available at this time, case management will follow. case management also spoke to Clarisa at [facility], patient received a wheelchair in 2015, insurance only allows one piece of equipement in 5 years, he is unable to get a walker thru the insurance, to buy one is $50 from [facility]. case management will follow
--- NOTE | 2018-11-22 09:00 | NUR ---
case management visits with patient, educated him that his insurance would only pay for one piece of equipment withing a five year span, and he received his wheelchair in 2016, a walker would cost him $50. patient stated that his brother will be able to go to the [facility] and get him one. educated him that his iv antibiotics are still in precert by his insurance
--- NOTE | 2018-11-22 09:24 | NUR ---
MORPHINE GIVEN PER ORDER FOR 10/10 R LEG PAIN. WILL CONTINUE TO MONITOR AND REASSESS.
--- NOTE | 2018-11-22 10:30 | NUR ---
MORPHINE APPEARS EFFECTIVE FOR LEG PAIN. PT RESTING COMFORTABLY.
--- NOTE | 2018-11-22 11:58 | NUR ---
NORCO GIVEN PER ORDER FOR 6 OUT OF 10 PAIN IN LEG/FOOT. WILL MONITOR.
[2018-11-22 12:00] VITALS: BP 155/64
[2018-11-22] MEDS ORDERED: CEFEPIME HYDROCH1 GM IV (12:38)
[2018-11-22] MEDS ORDERED: VANCOMYCIN HCL1 GM IV (12:38)
--- NOTE | 2018-11-22 14:00 | NUR ---
PT STATED HE DIDNT WANT FLUIDS-DR. HAIR NOTIFIED AND APPROVED DISCONTINUE.
--- NOTE | 2018-11-22 15:37 | NUR ---
MORPHINE GIVEN PER ORDER FOR 9/10 LEG PAIN. WILL REASSESS.
[2018-11-22 16:00] VITALS: BP 90/69
--- NOTE | 2018-11-22 16:37 | NUR ---
MORPHINE EFFECTIVE FOR LEG PAIN. PT STATES THAT IT IS NOW A 3.
--- NOTE | 2018-11-22 16:40 | NUR ---
PHYSICAL THERAPY Nursing screen received. PAtient with significant wounds and surgical procedures to ankle/foot with infected hardware removal. Limited mobility at this time. Recommend limited mobility with nursing as WB status permitted by physicians. Please order PT if difficulties with mobility arise with Weight Bearing stastus permitted. Thank you. Jaqueline Trammell,PT
--- NOTE | 2018-11-22 17:44 | NUR ---
NORCO GIVEN PER ORDER FOR COMPLAINTS OF FOOT/LEG PAIN. WILL REASSESS.
--- NOTE | 2018-11-22 18:30 | NUR ---
PT STATES NORCO IS EFFECTIVE. FRIENDS VISITING AT BEDSIDE. CALL LIGHT IN REACH.
--- NOTE | 2018-11-22 19:10 | NUR ---
PT IS AWAKE WITH FAMILY AT THE BEDSIDE. NO S/S OF DISTRESS NOTED. PT STATES THAT HE IS EXPERIENCING MILD PAIN BUT KNOWS THAT IT IS NOT TIME FOR PAIN MEDICATIONS YET. RESPIRATIONS ARE EASY AND NONLABORED, 2L O2 VIA NC BEING WORN AT THIS TIME. WILL CONTINUE TO MONITOR.
[2018-11-22 20:00] VITALS: BP 145/75
[2018-11-23] VITALS: BP 155/69
--- NOTE | 2018-11-23 03:58 | NUR ---
PT ADMINISTERED PRN NORCO FOR C/O PAIN RATED AN 8/10 WILL MONITOR FOR EFFECTIVENESS
--- NOTE | 2018-11-23 05:50 | NUR ---
PT ADMINISTERED PRN MORPHING FOR C/O PAIN RATED AN 8/10. WILL MONITOR FOR EFFECTIVENESS.
--- NOTE | 2018-11-23 06:08 | NUR ---
PRN NORCO AND MORPHINE EFFECTIVE. PATIENT STATES PAIN IS "MOSTLY RELIEVED" AND HE IS RESTING COMFORTABLY.
[2018-11-23 06:26] LABS: BASO % 0.1 % (0.0-1.0); HEMATOCRIT 38.3 % (42.0-52.0); HEMOGLOBIN 12.3 g/dl (14.0-18.0); LYMPH # 0.9 10*3/uL (1.3-4.4); LYMPH % 8.9 % (27.0-41.0); MEAN CELL VOLUME 98.2 fl (80.0-94.0); MEAN CORPUSCULAR HGB 31.5 pg (27.0-31.0); MEAN CORPUSCULAR HGB CONC 32.1 g/dl (33.0-37.0); MEAN PLATELET VOLUME 9.2 fl (9.6-12.3); MONO # 0.8 10*3/uL (0.1-1.0); MONO % 8.7 % (3.0-9.0); NEUT # 7.9 10*3/uL (2.3-7.9); NEUT % 81.5 % (47.0-73.0); PLATELET COUNT AUTOMATED 329 10*3/uL (130-400); RED CELL DISTRI WIDTH 17.2 % (0-14.5); WHITE BLOOD COUNT 9.7 10*3/uL (4.8-10.8)
[2018-11-23 06:37] LABS: ALBUMIN 2.8 gm/dl (3.1-4.5); ALKALINE PHOSPHATASE 73 U/L (45-117); BUN 13 mg/dl (7-24); CHLORIDE 97 mmol/L (98-107); CREATININE 0.56 mg/dL (0.70-1.30); POTASSIUM 3.5 mmol/L (3.5-5.1); SGOT/AST 34 IU/L (3-35); SGPT/ALT 39 U/L (12-78); SODIUM 141 mmol/L (136-145); TOTAL PROTEIN 5.9 gm/dL (6.4-8.2)
--- NOTE | 2018-11-23 07:50 | NUR ---
NORCO 5/325 GIVEN PER PATIENT REQUEST FOR RIGHT LEG PAIN RATING AN 8/10. VISTARIL GIVEN ALSO PER PATIENT REQUEST FOR ANXIETY.
[2018-11-23 08:00] VITALS: BP 138/61
--- NOTE | 2018-11-23 08:45 | NUR ---
NO SIGNS OF DISTRESS. NORCO EFFECTIVE.
--- NOTE | 2018-11-23 11:48 | NUR ---
MORPHINE 2MG IV GIVEN PER PATIENT REQUEST FOR LEG PAIN.
[2018-11-23 12:00] VITALS: BP 127/69
--- NOTE | 2018-11-23 12:30 | NUR ---
MORPHINE NOT EFFECTIVE FOR PAIN. NORCO 5/325MG GIVEN PER PATIENT REQUEST.
--- NOTE | 2018-11-23 13:30 | NUR ---
NO COMPLAINTS OF PAIN. NORCO EFFECTIVE.
[2018-11-23 16:00] VITALS: BP 165/68
--- NOTE | 2018-11-23 16:48 | NUR ---
NORCO 5/325 GIVEN PER PATIENT REQUEST FOR LEG PAIN.
--- NOTE | 2018-11-23 18:25 | NUR ---
MORPHINE 2MG IV GIVEN PER PATIENT REQUEST FOR LEG PAIN.
[2018-11-23 20:00] VITALS: BP 154/69
--- NOTE | 2018-11-23 20:52 | NUR ---
VISTARIL AND NORCO PROVIDED PER PT REQUEST FOR GENERALIZED PAIN AND ANXIETY. WILL MONITOR.
[2018-11-24] VITALS: BP 158/63
--- NOTE | 2018-11-24 03:07 | NUR ---
NORCO GIVEN PER PT REQUEST FOR C/O RT LEG PAIN
[2018-11-24 06:16] LABS: BASO % 0.1 % (0.0-1.0); EOS % 0.1 % (1.0-4.0); HEMATOCRIT 36.7 % (42.0-52.0); HEMOGLOBIN 11.9 g/dl (14.0-18.0); LYMPH # 1.1 10*3/uL (1.3-4.4); LYMPH % 9.1 % (27.0-41.0); MEAN CELL VOLUME 98.1 fl (80.0-94.0); MEAN CORPUSCULAR HGB 31.8 pg (27.0-31.0); MEAN CORPUSCULAR HGB CONC 32.4 g/dl (33.0-37.0); MEAN PLATELET VOLUME 9.2 fl (9.6-12.3); MONO # 1.1 10*3/uL (0.1-1.0); MONO % 9.4 % (3.0-9.0); NEUT # 9.8 10*3/uL (2.3-7.9); NEUT % 80.4 % (47.0-73.0); PLATELET COUNT AUTOMATED 326 10*3/uL (130-400); RED BLOOD COUNT 3.74 10*6/uL (4.50-5.90); RED CELL DISTRI WIDTH 17.3 % (0-14.5); WHITE BLOOD COUNT 12.1 10*3/uL (4.8-10.8)
[2018-11-24 06:30] LABS: ALBUMIN 2.7 gm/dl (3.1-4.5); BUN 14 mg/dl (7-24); CHLORIDE 97 mmol/L (98-107); CREATININE 0.64 mg/dL (0.70-1.30); PHOSPHOROUS 3.4 mg/dL (2.5-4.9); POTASSIUM 3.4 mmol/L (3.5-5.1); SGOT/AST 31 IU/L (3-35); SGPT/ALT 35 U/L (12-78); SODIUM 138 mmol/L (136-145); TOTAL PROTEIN 5.4 gm/dL (6.4-8.2)
[2018-11-24 06:31] LABS: ALKALINE PHOSPHATASE 66 U/L (45-117)
[2018-11-24 08:00] VITALS: BP 142/82
--- NOTE | 2018-11-24 09:02 | NUR ---
PT MEDICATED WITH PRN NORCO FOR C/O RIGHT FOOT PAIN. PT RATES PAIN 03/01. WILL REACCESS.
--- NOTE | 2018-11-24 09:12 | NUR ---
PNEUMOVAC GIVEN PER ORDER.
[2018-11-24 12:00] VITALS: BP 163/77
--- NOTE | 2018-11-24 12:47 | NUR ---
PT MEDICATED WITH PRN MORPHINE FOR C/O BILATERAL LEG PAIN. PT RATES PAIN 9/10. WILL REACCESS.
[2018-11-24 16:00] VITALS: BP 151/52
[2018-11-24 18:00] VITALS: BP 151/52
[2018-11-24 20:00] VITALS: BP 174/74
[2018-11-25] VITALS: BP 152/63
--- NOTE | 2018-11-25 00:40 | NUR ---
MORPHINE AND VISTARIL PROVIDED PER PT REQUEST.
--- NOTE | 2018-11-25 07:01 | NUR ---
AISHADOTTIE WIN [id number] Please refer to the physician's history and physical for past medical history, comorbid conditions, and allergies. Diagnosis: COPD EXACERBATION, OSTEOMYELITIS OF ANKLE, RIGHT Jaswinder Score: 17,AT RISK WOUND DESCRIPTIONS: Dressing intact to right lower extremity. No strike through drainage noted. Patient stated he will follow up with Dr. Butterfield this sunday at 4:00pm since he did the surgery and he followed with him previously. No complaints of pain at time of assessment. Surface the patient is resting on: Position Pro SKIN PREVENTION RECOMMENDATION: 1. Pressure redistribution support surface as appropriate 2. Elevate heels 3. Remove boots/TEDS every shift and reapply 4. Head of bed 30 degrees as tolerated 5. Assess nutrition and hydration 6. Manage moisture 7. Avoid the use of containment devices while in bed 8. Use absorptive products on surfaces limit layers of linens on bed 9. Turn and reposition every 1-2 hours in bed and every 1 hour in chair as tolerated 10. Weight shifts every 15 minutes while up in chair 11. Offloading with pillows or device to keep heels elevated off bed 12. Monitor skin at least every shift 13. Inspect under medical devices twice a day WOUND TREATMENT RECOMMENDATIONS: Continue orders per podiatry.
[2018-11-25 07:07] LABS: BASO % 0.1 % (0.0-1.0); EOS # 0.1 10*3/uL (0.0-0.4); HEMATOCRIT 37.6 % (42.0-52.0); HEMOGLOBIN 12.2 g/dl (14.0-18.0); LYMPH # 2.4 10*3/uL (1.3-4.4); LYMPH % 17.1 % (27.0-41.0); MEAN CELL VOLUME 96.9 fl (80.0-94.0); MEAN CORPUSCULAR HGB 31.4 pg (27.0-31.0); MEAN CORPUSCULAR HGB CONC 32.4 g/dl (33.0-37.0); MEAN PLATELET VOLUME 9.1 fl (9.6-12.3); MONO # 1.4 10*3/uL (0.1-1.0); MONO % 9.8 % (3.0-9.0); NEUT % 71.1 % (47.0-73.0); PLATELET COUNT AUTOMATED 307 10*3/uL (130-400); RED BLOOD COUNT 3.88 10*6/uL (4.50-5.90); RED CELL DISTRI WIDTH 17.4 % (0-14.5); WHITE BLOOD COUNT 14.1 10*3/uL (4.8-10.8)
[2018-11-25 07:34] LABS: BUN 15 mg/dl (7-24); CHLORIDE 97 mmol/L (98-107); CREATININE 0.55 mg/dL (0.70-1.30); POTASSIUM 3.8 mmol/L (3.5-5.1); SODIUM 140 mmol/L (136-145)
--- NOTE | 2018-11-25 07:43 | NUR ---
NORCO GIVEN PER PT REQUEST FOOR PAIN
[2018-11-25 08:00] VITALS: BP 145/63
--- NOTE | 2018-11-25 08:21 | NUR ---
case management received a call from Beverly from [facility], she stated authorization for patient's home iv antibiotic was received on Sunday, but nurse stated patient was unable to be discharged. Patient will be discharged to home today, Beverly stated Lynda will coordinate with [facility] to administer patient's dose of medication this evening, case management will follow
--- NOTE | 2018-11-25 10:00 | NUR ---
case management visits with patient, educated patient on received authorization for his home iv antibiotics and that he will be discharged to home today. patient denies any other needs at this time
[2018-11-25 12:00] VITALS: BP 145/63
--- NOTE | 2018-11-25 15:42 | NUR ---
DISCHARGE INSTRUCTIONS REVIEWED. PICC LINE INTACT.
--- NOTE | 2018-11-25 16:06 | NUR ---
PT INSTRUCTED TO F/U WITH PODIATRY ON 11/27/18 AT 4PM.
--- NOTE | 2018-11-25 17:33 | NUR ---
PT WHEELED OFF THE FLOOR TO PRIVATE CAR.
--- NOTE | 2018-11-26 12:31 | NUR ---
case management contacted [facility] regarding patient's oxygen liter flow, spoke to Marilee, patient is on home oxygen 24 hours a day at 2l/min
[2019-01-01 17:05] LABS: ACID FAST CULTURE Negative (.)
== END 2018-11-25 17:33 | disposition home or self-care (01) | DRG 853 ==
LOC: ED 20:57 → 4E 11-18 00:08 → EDHOLD 11-18 00:08 → 4E 11-18 00:13
PROVIDERS: Emergency Medicine; Family Medicine; Internal Medicine; Podiatrist; Student in an Organized Health Care Education/Training Program; ADMIT Internal Medicine
PROC: 0S9F3ZZ Drainage of Right Ankle Joint, Percutaneous Approach (ICD-10-PCS; principal; 2018-11-18)
PROC: 0QBJ0ZX Excision of Right Fibula, Open Approach, Diagnostic (ICD-10-PCS; 2018-11-18)
PROC: 0QPJ04Z Removal of Internal Fixation Device from Right Fibula, Open Approach (ICD-10-PCS; 2018-11-18)
PROC: 0QBG0ZX Excision of Right Tibia, Open Approach, Diagnostic (ICD-10-PCS; 2018-11-18)
PROC: 0QPG04Z Removal of Internal Fixation Device from Right Tibia, Open Approach (ICD-10-PCS; 2018-11-18)
PROC: 02H633Z Insertion of Infusion Device into Right Atrium, Percutaneous Approach (ICD-10-PCS; 2018-11-21)
DX: A41.9 Sepsis, unspecified organism (principal); E43 Unspecified severe protein-calorie malnutrition; J96.20 Acute and chronic respiratory failure, unspecified whether with hypoxia or hypercapnia; T84.59XA Infection and inflammatory reaction due to other internal joint prosthesis, initial encounter; J44.1 Chronic obstructive pulmonary disease with (acute) exacerbation; L02.415 Cutaneous abscess of right lower limb; L97.319 Non-pressure chronic ulcer of right ankle with unspecified severity; M87.871 Other osteonecrosis, right ankle; M86.8X6 Other osteomyelitis, lower leg; M19.071 Primary osteoarthritis, right ankle and foot; E55.9 Vitamin D deficiency, unspecified; G89.29 Other chronic pain; K21.9 Gastro-esophageal reflux disease without esophagitis; I70.201 Unspecified atherosclerosis of native arteries of extremities, right leg; F41.1 Generalized anxiety disorder; F32.9 Major depressive disorder, single episode, unspecified; E87.6 Hypokalemia; Y83.1 Surgical operation with implant of artificial internal device as the cause of abnormal reaction of the patient, or of later complication, without mention of misadventure at the time of the procedure; Z87.01 Personal history of pneumonia (recurrent); Z87.891 Personal history of nicotine dependence; Z82.0 Family history of epilepsy and other diseases of the nervous system; Z82.3 Family history of stroke; Z79.899 Other long term (current) drug therapy; Y92.89 Other specified places as the place of occurrence of the external cause; Z68.26 Body mass index [BMI] 26.0-26.9, adult

== ENCOUNTER 2018-12-28 21:48 | Inpatient (IN) | payer OTHER ==
[~2018-12-28] VITALS: Ht 187.9 cm; Wt 103.9 kg
--- NOTE | ~2018-12-28 | CON ---
[place], [place] REPORT OF CONSULTATION NAME: DOTTIE LEONARD UNIT #: [id number] ROOM: [facility] DOCTOR: HILDA MADISON,OCTOBER BIRTHDATE: [birth year] DOS: 12/29/2018 HISTORY OF PRESENT ILLNESS: The patient is a 48-year-old male who was admitted from home yesterday due to lethargy, repeated falls. He is a very poor historian. In trying to talk to him about temperature, his responses are inappropriate. He is hypercarbic. He has been having respiratory issues. He refuses intubation and per nursing ripped off his BiPAP. He has been at home receiving vancomycin and cefepime since 11/24/2018 when he was discharged after surgery. He had had right ankle surgery with hardware removal and I and D and bone biopsy on 11/18/[address] Butterfield, cultures from that were negative, but on pathology was positive for osteomyelitis. With this admission since yesterday, he had a CTA of the chest that showed a small age indeterminate pulmonary embolism in the right lower lobe as well as patchy consolidation of the right middle lobe suspicious for pneumonia, moderate emphysema and a spiculated nodule. CT of the head showed no acute changes. Tibia and fibula x-ray showed chronic deformity. He has had a sputum culture sent. Gram stain has many wbc's and many epithelial cells was contaminated, gram-positive cocci in clusters, gram-negative bacilli, gram-positive bacilli. The patient denies shortness of breath. Does have pain in the right leg, which he states has worsened recently. He has had feelings of being hot possibly with fevers at home, though he does not seem to have actually checked his temperature. Again, he is a very poor historian and inconsistent. He continues to receive the vancomycin and cefepime. He has had no other cultures other than the sputum culture. PAST MEDICAL HISTORY: As above as well as COPD, generalized anxiety disorder, GERD, stomach ulcers, major depressive disorder, vitamin D deficiency. SOCIAL HISTORY: He is a smoker, states he is down to under a pack a day. He has been smoking since he was a teenager. Also, smokes marijuana. No alcohol use. FAMILY MEDICAL HISTORY: Mother had multiple sclerosis. She is . Father due to fall downstairs. ALLERGIES: No known drug allergies. CURRENT MEDICATIONS: Include vancomycin, Solu-Medrol, Mucinex, Xarelto, cefepime, albuterol, Zofran, milk of magnesia, [place] and Tylenol. REVIEW OF SYSTEMS: As above in history of present illness, does have a loose, occasionally productive cough, he states he has had for approximately a month. The nurse who collected the sputum culture, states it is white sputum. Right lower extremity is casted. The cast was changed once a week per Podiatry. Further review of systems is unremarkable. LABORATORY DATA: WBC is 11.3, platelets 339, BUN 17, creatinine 1.02. AST 42, ALT 28, troponin 0.165. Albumin 2.8. Tox screen is negative. Urine culture is pending. Gram stain as above. [place], [place] REPORT OF CONSULTATION NAME: DOTTIE LEONARD UNIT #: [id number] ROOM: [facility] DOCTOR: HILDA MADISON,OCTOBER BIRTHDATE: [birth year] REVIEW OF SYSTEMS: No documented fever since admission. PHYSICAL EXAMINATION: VITAL SIGNS: Temperature 98.6, pulse 84, respirations 18, BP 142/58. GENERAL: A 48-year-old male, chronically ill in appearance, alert, responsive, cooperative, have some recurrent twitching bilateral upper extremities. He is in no acute distress, currently on O2 mask. HEAD, EYES, EARS, NOSE AND THROAT: Normocephalic. Conjunctivae with some erythema. Pupils equal, round and reactive to light. Oropharynx, no thrush. Mucous membranes moist. Very poor dentition. NECK: Supple, no cervical lymphadenopathy. LUNGS: Diminished bilaterally throughout. Respirations even and unlabored on O2. HEART: Regular rhythm. No murmur appreciated. ABDOMEN: Soft, nondistended, nontender. Positive bowel sounds. EXTREMITIES: Trace edema. Right lower extremity is casted. The cast is filthy. There is an odor from it whether it is from the self of the cast versus from his lower extremities, not able to be discerned. His toes are black with dirt and he has overall poor hygiene. Left upper extremity PICC is in place. The actual insertion site is covered, though the dressing is somewhat loose and there may be some adjacent erythema though it is hard to tell if it involves the insertion site. No phlebitis. ASSESSMENT: Right lower extremity osteomyelitis; now with hypercarbic respiratory failure; small, age indeterminate pulmonary embolism of the right lower extremity; questionable pneumonia on the right. PLAN: At this point, we will continue the vancomycin and cefepime like pneumonia is less likely. He needs to have blood cultures done and given his very poor hygiene concerned with possible line infection of the PICC line that had been in place for over a month. The PICC dressing is to be changed if there is any erythema or discharge at the site. The PICC is to be removed and the tip cultured. I did discuss this with his nurse. ADDENDUM I agree with the assessment and plan made by the nurse practitioner, Erin Stevens. I have reviewed the labs and imaging and made the necessary changes in the note. ERIN STEVENS CNP [place], [place] REPORT OF CONSULTATION NAME: DOTTIE LEONARD UNIT #: [id number] ROOM: [facility] DOCTOR: HILDA MADISONOCTOBER BIRTHDATE: [birth year] Emily Hollis MD CM:CONSTR:REPORT OF CONSULTATION [id number] 01/15/19 0550 interface
--- NOTE | ~2018-12-28 | PR ---
[place], [place] PROGRESS NOTE NAME: DOTTIE LEONARD UNIT #: [id number] ROOM: [facility] DOCTOR: ROMERO POSADA MD BIRTHDATE: [birth year] DOS: 12/31/2018 PULMONARY PROGRESS NOTE SUBJECTIVE: The patient has been given Ativan previously because of agitation. Noted awake and alert, still not using the BiPAP, only oxygen supplementation used by the nasal cannula, resting comfortably this morning of assessment. PHYSICAL EXAMINATION: GENERAL: The patient is currently comfortable, lying in the bed, using oxygen supplementation per nasal cannula. VITAL SIGNS: This morning, normal temperature, heart rate 60-64, blood pressure 150/74. Pulse oxygen saturation on 5 liters nasal cannula 98% saturation. HEENT: Examination shows head was atraumatic. Eyes nonicterus. NECK: Supple. CARDIOVASCULAR SYSTEM: S1, S2 audible. LUNGS: The patient was noted without any crackles, rhonchi, or wheezing. ABDOMEN: Soft, nontender. Bowel sounds present. EXTREMITIES: No acute change. LABORATORY DATA: The culture of the sputum of the 9th, normal kirby. CBC; WBC count 7.2, hemoglobin 12.2, platelet count was normal. ESR was noted as 10. IMPRESSION: 1. The patient with acute hypercapnic and hypoxemic respiratory failure. 2. The patient with acute aspiration pneumonia. 3. Acute small pulmonary embolus in the right lower lobe pulmonary arterial branches. 4. The patient with cast of the right lower extremity with osteomyelitis as well. Ultrasound of the lower extremity was done yesterday and the findings were noted negative for deep venous thrombosis of the left lower extremity. PLAN OF MANAGEMENT: Continue current plan of management with anticoagulation with the use of Xarelto. Continue use of Solu-Medrol as 40 mg IV b.i.d. dosing. Bronchodilator, other therapy, plan of management, care plan. Usual care. Oxygen supplementation. The patient could be transferred from the ICU to the medical floor as desired. [place], [place] PROGRESS NOTE NAME: DOTTIE LEONARD UNIT #: [id number] ROOM: [facility] DOCTOR: ROMERO POSADA MD BIRTHDATE: [birth year] ROMERO JOSEPH MD CM:PNTRANS [id number] ROMERO ORTEGA MD 12/31/18 230 interface
--- NOTE | ~2018-12-28 | CON ---
[place], [place] REPORT OF CONSULTATION NAME: DOTTIE LEONARD UNIT #: [id number] ROOM: [facility] DOCTOR: JAKE ORTEGA MD,ROMERO BIRTHDATE: [birth year] DOS: 12/29/2018 PULMONARY CONSULTATION, EVALUATION, AND MANAGEMENT CONSULTATION REQUESTED BY: Hospitalist services. REASON FOR CONSULTATION: For assessing the patient for the current acute respiratory failure. HISTORY OF PRESENT ILLNESS: History was partially obtained, but because of confusional state and sleepiness could not be accurately obtained. The history is documented by the medical record documentation by the other physician. The patient came to the hospital as he has recurrent osteomyelitis of the right lower leg, has a cast in place. The patient presented to the Emergency Room as the patient was not doing well, generally weak and fatigued. He has been admitted to the medical floor. The patient later on transferred to the Intensive Care Unit for further medical management. The arterial blood gases noted with acute hypercapnic hypoxemic respiratory failure as well. Currently, the patient has been treated in the Intensive Care Unit. He has been started on BiPAP earlier that has been taken out by the patient and he does not wish to use the BiPAP. He has been currently getting intravenous antibiotics vancomycin and cefepime for the medical management of osteomyelitis of the right leg with a cast in place. He has to receive the treatment total of 4 weeks. The patient was noted arousable with vocal commands. The patient say few words, but does not have complete sentences at this time and noted falling asleep. He has expressed the wish to see the other physician, who has seeing from the hospitalist services as the patient does not wish to be intubated even if he is going to with that. He also does not wanted to wish the BiPAP at this time, he pulled it off, currently getting oxygen supplementation with the Venturi mask. He had a CTA of the chest that was done this morning as well for the assessment of hypoxia, but noted with acute pulmonary embolism as well. PAST MEDICAL HISTORY: Chart reviewed was reported as: 1. History of longstanding COPD. 2. Avascular necrosis of the bone, right lower extremity with osteomyelitis and cellulitis of the right leg. 3. Chronic nicotine dependence. 4. General anxiety disorder. 5. Gastroesophageal reflux. 6. Peptic ulcer disease. 7. Major depressive disorder. 8. Vitamin D deficiency. PAST SURGICAL HISTORY: Noted surgery of the ankle with hardware in place of the right lower extremity. HOME MEDICATIONS: Home medications listed as ProAir HFA inhaler, Ventolin nebulizer treatment, Symbicort, Suboxone, BuSpar, cefepime, vitamin D, vitamin B12, Flonase, gabapentin, hydroxyzine, loratadine, multivitamin, Protonix, Carafate, thiamine, trazodone, and intravenous vancomycin. [place], [place] REPORT OF CONSULTATION NAME: DOTTIE LEONARD UNIT #: [id number] ROOM: [facility] DOCTOR: JAKE ORTEGA MD,[facility] BIRTHDATE: [birth year] CURRENT MEDICATIONS: Current medications administered were noted as use of Solu-Medrol, Mucinex, Xarelto, albuterol sulfate with the nebulizer q.4 hours, IV vancomycin and cefepime 2 grams b.i.d., and some other p.r.n. medications. DRUG ALLERGIES: No known drug allergies. SOCIAL HISTORY: The patient does not have any history of alcohol use. He has been reported history of marijuana use again, quantity use was unknown. Tobacco use, smoking half a pack of cigarettes per day as the patient stated that. FAMILY HISTORY: Reported as father from an accident at home. The mother from complication of multiple sclerosis. REVIEW OF SYSTEMS: Cannot be accurately done or relied upon at the present time. PHYSICAL EXAMINATION: GENERAL: This is a 48-year-old white male, who has been noted somewhat lethargic, arousable with vocal commands. Height of 6 feet 2 inches, weight of 229, and BMI of 29. He has been resting otherwise comfortably and using oxygen supplement by nasal cannula. There was no distress noted. VITAL SIGNS: Noted normal temperature, respiratory rate ranges between 16 and 18, heart rate 67-88, blood pressure 140/58-122/73. Pulse oxygen saturation is recorded on 50% Venturi mask as 93% saturation. HEENT: Examination shows head was atraumatic. Eyes nonicterus. NECK: Supple. CARDIOVASCULAR SYSTEM: S1, S2 is audible. LUNGS: Noted general reduction in the breath sounds bilaterally. There was no wheezing or crackles heard. ABDOMEN: Soft, flat, nontender. Bowel sounds present. EXTREMITIES: No acute change. MUSCULOSKELETAL: Without any acute deformities. Cast noted in place of the right lower extremity. VISIBLE SKIN: No lesions or rashes. CENTRAL NERVOUS SYSTEM: Noted change in mental status. Further exam cannot be accurately performed. The patient was moving extremities with his own will. LABORATORY DATA: CBC that was done yesterday on admission, WBC count was 11.3, hemoglobin was 12.2, and platelet count was 339,000. PT and PTT was noted as normal yesterday as well. CMP that was done yesterday, normal BUN and creatinine, glucose of 124, and CO2 of 33. AST was minimally elevated at 42, normal ALT and alkaline phosphatase. Troponin is minimally elevated at 0.165. The arterial blood gas, pH of 7.32, pCO2 of 56, and pO2 of 50, first one taken this morning at 03:00 a.m. Ethyl alcohol level noted as less than 2. The troponin was elevated again at 0.120. Arterial blood gas, pH of 7.31, pCO2 of 66, and pO2 of 94.5. IMAGING DATA: CT scan of the chest that was done with IV contrast. CTA protocol noted with spiculated nodule noted in the right upper lobe, which has [place], [place] REPORT OF CONSULTATION NAME: DOTTIE LEONARD Rocío UNIT #: [id number] ROOM: [facility] DOCTOR: JAKE ORTEGA MD,[facility] BIRTHDATE: [birth year] been seen with the previous CT scan, comparison of 09/15/2015, same finding. Evidence of centrilobular emphysema noted in the lungs bilaterally. Infiltration with consolidation noted in the right lower lobe as well. Small pulmonary embolism noted in the right lower lobe as well. IMPRESSION: 1. The patient has been currently admitted to the hospital was noted with acute hypercapnic hypoxemic respiratory failure, possible hypercapnia will be considered with chronic obstructive pulmonary disease. 2. Acute exacerbation of chronic obstructive pulmonary disease. 3. Acute pulmonary embolism was noted in the right lower lobe pulmonary artery branches as well with mildly elevated troponin as well, most likely related to current pulmonary embolism. Hemodynamically, the patient has been noted stable. Current pulmonary embolism would be considered as a stable pulmonary embolism, which was nonsaddle. 4. The patient with chronic nicotine dependence was also known. 5. Refusal to get the further treatment of hypercapnia with BiPAP and/or intubation. 6. Osteomyelitis of the right leg, he is currently treated with IV vancomycin and the cefepime. 7. Possibility of pneumonia would be considered as an aspiration because of location of right lower lobe as well. 8. Metabolic alkalosis secondary to chronic hypercarbia. PLAN OF THERAPY: At this time, the patient will be treated with current antibiotics that should suffice. Xarelto could be used as 15 mg b.i.d. 7 days followed by 20 mg daily dose for the management of acute pulmonary embolism. Ultrasound of the left lower extremity will be obtained to assess any blood clot as some edema of the left lower extremity noted and right lower extremity cast noted in place. Bronchodilators will be continued. Current antibiotics should cover the infection as well. Follow the culture results. The sputum culture was sent. Culture will be monitored. Continue IV Solu-Medrol, bronchodilator for the medical management of acute exacerbation of chronic obstructive pulmonary disease with additional treatment continued to be ordered based on the progression of illness. Involved the family member about decision making for further advanced directive and care for this patient as I am not sure the patient is unable to exactly determine his code status because of the hypercarbia, lethargy, and sleepiness. The case has been discussed with Dr. Ronnie Siegel, primary attending, today. Further treatment changes will be made based on the progression of the clinical course of his illness. [place], [place] REPORT OF CONSULTATION NAME: AISHADOTTIE Rocío UNIT #: [id number] ROOM: [facility] DOCTOR: ROMERO POSADA MD BIRTHDATE: [birth year] ROMERO JOSEPH MD CM:CONSTR:REPORT OF CONSULTATION 1428 01/13/19 1005 interface
--- NOTE | ~2018-12-28 | PR ---
[place], [place] PROGRESS NOTE NAME: DOTTIE LEONARD UNIT #: [id number] ROOM: [facility] DOCTOR: JAKE ORTEGA MD,ROMERO BIRTHDATE: [birth year] DOS: 12/30/2018 SUBJECTIVE: The patient was noted comfortable this morning, refusing the BiPAP, using oxygen supplementation nasal cannula and does not want to use the Venturi mask as well. Noted much more awake and alert this morning, the patient was conversing and seems to be oriented. Not been noted symptoms of chest pain. Denies symptoms of fever or chills. The patient does not have any symptoms of hemoptysis. Mild cough was noted. Denies any pain of the lower extremities. Remaining systems were reviewed and they were noted negative. Past family, social, surgical history are reviewed again was noted negative since my consultation yesterday. PHYSICAL EXAMINATION: GENERAL: The patient comfortably resting in the ICU this morning of assessment, using oxygen supplementation 5 liters nasal cannula. VITAL SIGNS: Normal temperature, respiratory rate between 20-33, heart rate 76-87, blood pressure 153/79-136/65. The pulse oxygen saturation on 5 liters nasal cannula was 94% saturation. The intake is 440, output is 800 mL. HEENT: Examination shows head was atraumatic. EYES: No icterus. NECK: Supple. CARDIOVASCULAR: S1, S2 is audible. LUNGS: The patient was noted with decreased breath sounds in the lungs bilaterally. Scattered wheezing. ABDOMEN: Soft, nontender, bowel sounds present. EXTREMITIES: Noted with edema of the left lower extremity, and a cast on the right lower extremity. MUSCULOSKELETAL: Otherwise noted without any deformities. SKIN: No lesions or rashes. CENTRAL NERVOUS SYSTEM: Cranial nerves 2-12 are intact. LABORATORY DATA: Arterial blood gas this morning repeated 5 liters, pH of 7.33, pCO2 of 63, pO2 of 62. CBC that was done on 12/30/2018, hemoglobin 11.9, WBC count normal, platelet count was normal. The BMP this morning, BUN normal, creatinine was normal. CO2 was 35. IMPRESSION: The patient who has been currently noted with: 1. Acute aspiration pneumonia. 2. Acute hypercapnic hypoxic respiratory failure. 3. The patient with acute pulmonary embolism in the right lower pulmonary arterial branches, which is noted as a stable pulmonary embolism. 4. Metabolic alkalosis secondary to chronic hypercarbia. 5. Refusal of certain treatment intervention that is offered to the patient for medical management of respiratory issues. 6. Chronic nicotine dependence. 7. Acute exacerbation of chronic obstructive pulmonary disease. PLAN OF THERAPY: Continue antibiotic, bronchodilator. Monitor culture results. Obtain ultrasound of the left lower extremity, rule out deep venous thrombosis. [place], [place] PROGRESS NOTE NAME: DOTTIE LEONARD UNIT #: [id number] ROOM: [facility] DOCTOR: ROMERO POSADA MD BIRTHDATE: [birth year] Continue Xarelto, primary anticoagulant at this time. Other therapy, plan and management, additional treatment changes will be done based on the progression of the illness. Supportive care. No change in steroid dose. Bronchodilator to be continued. The patient could be transferred from the Intensive Care Unit to medical floor from pulmonary standpoint whenever necessary. ROMERO JOSEPH MD CM:PNTRANS [id number] ROMERO ORTEGA MD 12/30/18 1350 interface
--- NOTE | ~2018-12-28 | EKG ---
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: : [id number] Requested By: BEBETO GRIFFIN Order Number: [id number] Reading MD: Catalina Banks MD Measurements Intervals [place] Rate: 104 P: -1 WI: 124 QRS: 140 QRSD: 113 T: -8 QT: 339 QTc: 446 Interpretive Statements Sinus tachycardia Atrial premature complexes Borderline intraventricular conduction delay Borderline T abnormalities, inferior leads Compared to ECG 11/18/2018 02:31:43 Atrial premature complex(es) now present T-wave abnormality now present Sinus rhythm no longer present Left anterior fascicular block no longer present Incomplete right bundle-branch block no longer present Right bundle-branch block no longer present Right ventricular hypertrophy no longer present Electronically Signed On 12-29-2018 13:15:00 PDT by Catalina Banks MD CM:EKGRPT:ELECTROCARDIOGRAM REPORT [id number] 1315 BEBETO CASTILLO DRAFT REPORT BEBETO GRIFFIN DO
[~2018-12-28 21:48] MED LIST changes: +B-1100 M1 PO; +B-121000 MCG PO; +CEFEPIME HYDROCH1 GM IV; +MULTIVITAMINS1 EAC6 PO; +NARCAN4 MG NAS; +PANTOPRAZOLE SO40 MG PO; +TRAZODONE100 MG PO; +VANCOMYCIN HCL1 GM IV; +VENTOLIN 02.5 MG/3 M INH
[2018-12-28 22:02] VITALS: BP 116/52
[2018-12-28 22:34] LABS: BASO # 0.1 10*3/uL (0.0-0.1); BASO % 0.7 % (0.0-1.0); EOS % 0.4 % (1.0-4.0); HEMATOCRIT 39.6 % (42.0-52.0); HEMOGLOBIN 12.2 g/dl (14.0-18.0); LYMPH # 0.8 10*3/uL (1.3-4.4); LYMPH % 6.7 % (27.0-41.0); MEAN CELL VOLUME 103.7 fl (80.0-94.0); MEAN CORPUSCULAR HGB 31.9 pg (27.0-31.0); MEAN CORPUSCULAR HGB CONC 30.8 g/dl (33.0-37.0); MEAN PLATELET VOLUME 8.9 fl (9.6-12.3); MONO # 1.3 10*3/uL (0.1-1.0); MONO % 11.8 % (3.0-9.0); NEUT % 79.8 % (47.0-73.0); PLATELET COUNT AUTOMATED 339 10*3/uL (130-400); RED BLOOD COUNT 3.82 10*6/uL (4.50-5.90); WHITE BLOOD COUNT 11.3 10*3/uL (4.8-10.8)
[2018-12-28 22:45] LABS: INTERNATIONAL NORM RATIO 1.1 (2.0-3.5)
[2018-12-28 22:54] LABS: ALBUMIN 2.8 gm/dl (3.1-4.5); ALKALINE PHOSPHATASE 113 U/L (45-117); BUN 17 mg/dl (7-24); CHLORIDE 104 mmol/L (98-107); CREATININE 1.02 mg/dL (0.70-1.30); POTASSIUM 4.6 mmol/L (3.5-5.1); SGOT/AST 42 IU/L (3-35); SGPT/ALT 28 U/L (12-78); SODIUM 141 mmol/L (136-145); TOTAL PROTEIN 6.8 gm/dL (6.4-8.2)
[2018-12-28 22:57] LABS: TROPONIN I 0.165 ng/ml (<0.045)
[2018-12-29] VITALS (9 sets, daily range): BP systolic 112–142; BP diastolic 50–82
--- NOTE | 2018-12-29 01:42 | NUR ---
dr. miner was notfied of the critical trop of 0.164.
--- NOTE | 2018-12-29 02:23 | NUR ---
WAITING ON BED ASSIGNMENT
--- NOTE | 2018-12-29 02:40 | NUR ---
A 48, admitted to , under the services of YAIR Skaggs DO with a diagnosis of AMBULATORY DYSFUNCTION. Chief complaint is FALL. Patient arrived via bed from ER. Monitor applied. Initial assessment completed. Vital signs taken and recorded. YAIR SKAGGS DO notified of admission to the unit. Orders received. See assessment for past medical history, medications and allergies. Patient and/or family oriented to unit. [address] visitation policy reviewed. Clothing/patient valuable form completed. CLINTON CORADO
--- NOTE | 2018-12-29 03:01 | NUR ---
PATIENT NOT AWARE OF MEDICATION LIST. SUBOXONE WITH PATIENT.
--- NOTE | 2018-12-29 03:05 | NUR ---
REPSIRATORY AT BEDSIDE. PATIENT PLACED ON SIMPLE OXYGEN MASK FOR O2 SAT 75%.
--- NOTE | 2018-12-29 03:06 | NUR ---
02 SAT 87% ON 8L SIMPLE MASK.
[2018-12-29 03:08] LABS: ABG BASE EXCESS 2.3 mmol/L (-2.0-2.0); ABG HCO3 28.9 mmol/l (22-26); ABG O2 SATURATION 89.8 % (95-97); ARTERIAL BLOOD GAS PCO2 56.8 mmHg (35-45); ARTERIAL BLOOD GAS PH 7.325 (7.35-7.45); ARTERIAL BLOOD GAS PO2 50.3 mmHg (80-90)
--- NOTE | 2018-12-29 03:09 | NUR ---
93% ON 8L AT THIS TIME
--- NOTE | 2018-12-29 03:12 | NUR ---
DR DONOVAN AT BEDSIDE
--- NOTE | 2018-12-29 03:12 | NUR ---
95% 8L HIGHFLOW MASK AT THIS TIME
--- NOTE | 2018-12-29 03:13 | NUR ---
PATIENT STATES HE FELL AT HOME AND LOSS CONSCIOUSNESS, BROTHER HAD TO WAKE HIM UP. DR DONOVAN MADE AWARE
--- NOTE | 2018-12-29 04:54 | NUR ---
PT NOTED TO HAVE SEVERE TREMORS. UNABLE TO SIT STILL FOR ANY PERIOD OF TIME. PATIENT STATES THAT THIS IS NORMAL FOR HIM BUT HE IS A POOR HISTORIAN. THERE IS A RED SPOTTED RASH BETWEEN THE GROIN AND UMBILICAL AREA, PATIENT STATES HE HAS NOT NOTICED THIS BEFORE AND IT IS NOT CURRENTLY ITCHING WITH NO PAIN ASSOCIATED. PATIENT STATES THAT HE HAS NOTICED HIS GROIN IS REDDED AND PAINFUL BUT DENIES TO ALLOW ASSESSMENT OF THE AREA. THERE ARE TWO WOUNDS PRESENT. ONE ON THE RIGHT BAUTISTA AND THE OTHER ON THE FOREHEAD.
--- NOTE | 2018-12-29 05:46 | NUR ---
DR DONOVAN AWARE OF CRITICAL TROPONIN
--- NOTE | 2018-12-29 06:00 | NUR ---
ATTEMPTED TO OBTAIN ORDERED DOSE OF LOVENOX. DOSE UNAVAILABLE, HAVE TO WAIT UNTIL PHARMACY ARRIVES.
--- NOTE | 2018-12-29 06:08 | NUR ---
CONSULT CALLED TO DR. WISE AND DR. CORADO
[2018-12-29 06:13] LABS: ABG BASE EXCESS 5.2 mmol/L (-2.0-2.0); ABG HCO3 32.7 mmol/l (22-26); ABG O2 SATURATION 98.7 % (95-97); ARTERIAL BLOOD GAS PCO2 66.5 mmHg (35-45); ARTERIAL BLOOD GAS PH 7.311 (7.35-7.45); ARTERIAL BLOOD GAS PO2 94.5 mmHg (80-90)
--- NOTE | 2018-12-29 06:22 | NUR ---
ATTEMPTED TO CALL DR JOSEPH. AWAITING CALL BACK
--- NOTE | 2018-12-29 06:46 | NUR ---
0642 RECEIVED IN [facility] BED WITH BELONGINGS. REPORT RECEIVED. PLACED ON BIPAP ORDERED. DR. DONOVAN HERE. SEE INTERVENTION SCREEN FOR ALL VS.
--- NOTE | 2018-12-29 07:02 | NUR ---
Shift chart check completed.24 HR chart check completed.
--- NOTE | 2018-12-29 07:36 | NUR ---
ON ASSESSMENT PATIENT IS DROWSY BUT AROUSES TO VERBAL STIMULI. DR CID AT THE BEDSIDE. TALKED WITH PT ABOUT POSSIBLE INTUBATION AND HE SAYS "NO". HE THEN TORE THE BIPAP OFF, SAYING "I CAN'T STAND THAT". 50% VENTURI MASK APPLIED. CAST INTACT TO RT FOOT, POOR HYGEINE. THERE'S A WOUND ABOVE THE CAST. PICC LINE INTACT LEFT UPPER ARM. SEE ALL APPROPRIATE INTERVENTIONS.
--- NOTE | 2018-12-29 08:15 | NUR ---
PT HAS BEEN ACCOMPANIED TO AND FROM CT SCAN. TOLERATED WELL.
[2018-12-29 08:30] LABS: ABG BASE EXCESS 3.3 mmol/L (-2.0-2.0); ABG HCO3 31.6 mmol/l (22-26); ABG O2 SATURATION 96.2 % (95-97); ARTERIAL BLOOD GAS PCO2 69.5 mmHg (35-45); ARTERIAL BLOOD GAS PH 7.276 (7.35-7.45); ARTERIAL BLOOD GAS PO2 82.2 mmHg (80-90)
--- NOTE | 2018-12-29 08:54 | NUR ---
ABG'S HAVE BEEN DONE RT RADIAL. DR PARKER FROM [facility] CALLED WITH CRITICAL CTA RESULTS. POSITIVE PULMONARY EMBOLI. DR WHITEHEAD HAS BEEN NOTIFIED.
--- NOTE | 2018-12-29 09:05 | NUR ---
PODIATRY RESIDENT NOTIFIED OF CONSULT.
--- NOTE | 2018-12-29 09:32 | NUR ---
DR JOSEPH NOTIFIED OF CONSULTATION. REVIEWED CTA,ABG'S, MEDS. NO NEW ORDERS. PT DROWSY.
--- NOTE | 2018-12-29 10:12 | NUR ---
DR CHO (PODIATRY) HAS VISITED. HE PADDED THE TOP OF THE CAST.
--- NOTE | 2018-12-29 10:22 | NUR ---
PT HAS BEEN DOZING INTERMITTENTLY, HARD TO STAY AWAKE. HIS PULSE OX TO 87% ON THE NASAL CANNULA HE HAD ON WHILE ATTEMPTING TO EAT BREAKFAST. REPLACED THE CANNULA WITH 50% VENTURI MASK AGAIN. I AGAIN TALKED TO HIM ABOUT VENTILATOR. HE SAID "I'LL BE GOOD, I'LL WEAR MY OXYGEN LIKE I'M SUPPOSED TO". ATTEMPT TO EXPLAIN ABOUT ELEVATED CO2.
--- NOTE | 2018-12-29 10:55 | NUR ---
PT NOT ON BIPAP AT THIS TIME
--- NOTE | 2018-12-29 12:28 | NUR ---
DR JOSEPH HAS VISITED.
[2018-12-29 14:46] LABS: URINE AMPHETAMINES < 1000 (1000ng/ml); URINE BARBITURATES < 200 (200ng/ml); URINE BENZODIAZEPINES < 200 (200ng/ml); URINE CANNABINOIDS (THC) < 50 (50ng/ml); URINE COCAINE < 300 (300ng/ml); URINE METHADONE < 300 (300ng/ml); URINE OPIATES < 300 (300ng/ml); URINE PHENCYCLIDINE < 25 (25ng/ml)
--- NOTE | 2018-12-29 15:29 | NUR ---
PHYSICAL THERAPY ATTEMPTED PT EVAL TODAY HOWEVER PATIENT WAS TRANSFERRED TO ICCU THEREFORE NEW ORDER IS REQUIRED. THANKS JENNIFER PETERS PT
--- NOTE | 2018-12-29 15:59 | NUR ---
KARIE GRIDER [facility] IN TO SEE PATIENT. PICC LINE DRESSING CHANGED BY OBDULIA ALBA. SLIGHTLY PINK AT INSERTION SITE ONLY. ONE BLOOD CULTURE DRAWN FROM THE PICC LINE AND ONE PERIPHERAL BY THE LAB.
--- NOTE | 2018-12-29 16:01 | NUR ---
DR WISE HAS VISITED.
--- NOTE | 2018-12-29 17:57 | NUR ---
PT PLACED ON NASAL CANNULA 4L TO EAT DINNER. HE ATE A FEW BITES THEN C/O NAUSEA. ZOFRAN 4MG IV GIVEN. PULSE OX DROPPED TO HIGH 80'S. VENTURI REPLACED.
--- NOTE | 2018-12-29 19:00 | NUR ---
COMPLETE BED BATH GIVEN NOW,DIDN'T HADN'T WANTED TO BE BOTHERED EARLIER TODAY. HIS ENTIRE AREA OF GENITALS IS EXCORIATED BUT NO DRAINAGE. LEFT HIS WET PJ BOTTOMS OFF.
--- NOTE | 2018-12-29 19:21 | NUR ---
DR DONOVAN NOTIFIED OF EXCORIATED AREA OF GINO AREA. ORDERS RECEIVED.
--- NOTE | 2018-12-29 23:20 | NUR ---
PT. REFUSED BIPAP AT THIS TIME.
[2018-12-30] VITALS: BP 136/65
[2018-12-30 04:00] VITALS: BP 135/66
[2018-12-30 05:45] LABS: BUN 12 mg/dl (7-24); CHLORIDE 105 mmol/L (98-107); PHOSPHOROUS 3.1 mg/dL (2.5-4.9); SODIUM 143 mmol/L (136-145)
[2018-12-30 05:56] LABS: HEMATOCRIT 38.6 % (42.0-52.0); HEMOGLOBIN 11.9 g/dl (14.0-18.0); MEAN CELL VOLUME 101.6 fl (80.0-94.0); MEAN CORPUSCULAR HGB 31.3 pg (27.0-31.0); MEAN CORPUSCULAR HGB CONC 30.8 g/dl (33.0-37.0); MEAN PLATELET VOLUME 9.8 fl (9.6-12.3); PLATELET COUNT AUTOMATED 340 10*3/uL (130-400); RED CELL DISTRI WIDTH 16.7 % (0-14.5); WHITE BLOOD COUNT 7.7 10*3/uL (4.8-10.8)
[2018-12-30 06:20] LABS: TOTAL CELLS COUNTED 100 #CELLS
[2018-12-30 06:21] LABS: PLATELET SUFFICIENCY NORMAL (NORMAL)
--- NOTE | 2018-12-30 07:30 | NUR ---
PT. REFUSES BIPAP, RN AWARE.
--- NOTE | 2018-12-30 07:44 | NUR ---
PHYSICAL THERAPY PAtient moved to ICCU. Please order PT when medically appropriate if mobility needs arise. Thank you for this referral. Jaqueline Trammell,PT
[2018-12-30 08:00] VITALS: BP 153/79
--- NOTE | 2018-12-30 08:00 | NUR ---
ON ASSESSMENT PATIENT MORE AWAKE THAN YESTERDAY, ORIENTED WITH PROMPTING. REMAINS ON NASAL O2. PICC LINE INTACT LEFT ARM. CAST IN PLACE RT LOWER LEG. SEE ALL APPROPRIATE INTERVENTIONS.
--- NOTE | 2018-12-30 08:08 | NUR ---
Occupational Therapy referral received 12/29/18 and patient transferred to ICCU d/t medical acuity before OT evaluation. Alexandra Toscano OTR/rosy
--- NOTE | 2018-12-30 09:00 | NUR ---
Saturation Diver in to talk to patient. Patient states lives at home alone with his family checking in on him. There are 1-2 steps in the home. Physician: Isabella Cortez Pharmacy: [facility] Home health services: [facility] Patient's level of ADLs: MINIMAL ASSIST Patient has working utilities: yes DME: cane, O2 @ 1-2L nc, portable O2 tanks, nebulizer, O2 supplier [facility] Follow-up physician's appointment after d/c: will be made by the hospitalist nurse director upon discharge Does patient want to access PORTAL?: no Discharge plan discussed with patient. He lives at home alone with his family checking in on him. He needs minimal assistance with his ADLs and ambulates with cane. Discussed short term SNF and he refuses. Discussed home health care services and he currently has [facility] and would like to resume those services upon discharge. When medically stable he will be discharged to home with the resumption of his [facility] services. GOLDEN HUDSON
--- NOTE | 2018-12-30 09:22 | NUR ---
DOTTIE LEONARD [id number] Please refer to the physician's history and physical for past medical history, comorbid conditions, and allergies. Diagnosis: AMBULATORY DYSFUNCTION, FALL Jaswinder Score: 16,AT RISK WOUND DESCRIPTIONS: Wound Number: 1 Location of the wound: right lower extremity above cast Type of wound: medical physiologist relate pressure injury unstageable Thickness: Full Size: 1.5cm x 1.0cm x <0.1cm Tunneling: none Undermining: none Sinus Tract: none Presence of Exudate: none Amount: None Color: Brown, yellow, red Odor: None Periwound Skin Appearance: Erythema Wound edges: closed Pain (associated with wound): none at time of assessment How does patient state this happened? pt unable to state nurse caring for patient stated his cast is changed every sunday. Wound Number: 2 Location of the wound: right side of forehead Thickness: Partial Size: 0.5cm x 0.5cm x 0.1cm Tunneling: none Undermining: none Sinus Tract: none Presence of Exudate: Serosanguineous Amount: Light Color: Red Odor: None Periwound Skin Appearance: Normal Wound edges: approximated Pain (associated with wound): none at time of assessment How does patient state this happened? pt unable to state how this happened Bilateral groins and abdominal fold red satellite areas noted at time of assessment. Foul odor noted at time of assessment. Surface the patient is resting on: Isoflex SKIN PREVENTION RECOMMENDATION: 1. Pressure redistribution support surface as appropriate 2. Elevate heels 3. Remove boots/TEDS every shift and reapply 4. Head of bed 30 degrees as tolerated 5. Assess nutrition and hydration 6. Manage moisture 7. Avoid the use of containment devices while in bed 8. Use absorptive products on surfaces limit layers of linens on bed 9. Turn and reposition every 1-2 hours in bed and every 1 hour in chair as tolerated 10. Weight shifts every 15 minutes while up in chair 11. Offloading with pillows or device to keep heels elevated off bed 12. Monitor skin at least every shift 13. Inspect under medical devices twice a day WOUND TREATMENT RECOMMENDATIONS: Podiatry is already consult and follows cast placement every sunday. Clarify nystatin powder: Cleanse abdominal folds and bilateral groins with soap and water and apply nystatin powder every 8 hours. Partial thickness guidelines: Cleanse forehead with nss and apply sureprep around the wound hydrogel to wound bed and cover with bandaid daily.
[2018-12-30 09:29] LABS: ABG HCO3 33.4 mmol/l (22-26); ABG O2 SATURATION 91.2 % (95-97); ARTERIAL BLOOD GAS PCO2 63.7 mmHg (35-45); ARTERIAL BLOOD GAS PH 7.337 (7.35-7.45); ARTERIAL BLOOD GAS PO2 62.1 mmHg (80-90)
--- NOTE | 2018-12-30 11:06 | NUR ---
Dr. Ferrell notified of wound care recommendations.
--- NOTE | 2018-12-30 11:10 | NUR ---
PT WAS SENT, ON PORTABLE MONITOR, TO RADIOLOGY FOR BILATERAL LEG ULTRASOUND. WHILE THERE THE MONITOR ALARMING DESATURATION. I WENT TO RADIOLOGY AND FOUND THEM CHANGING THE O2 TANK, HIS O2 SATURATION STEADILY IMPROVED AND I STAYED WITH HIM FOR THE DURATION OF THE TEST AND RETURN TO ICCU.
[2018-12-30 12:00] VITALS: BP 146/87
--- NOTE | 2018-12-30 12:00 | NUR ---
DR RONQUILLO AND DR CHO HERE AND REMOVED THE CAST. SUTURES INTACT INNER AND OUTER ANKLE, CLEAN/DRY. DR CHO REPLACED THE CAST, HE APPLIED A FOLDED ADAPTIC AND GAUZE TO THE WOUND JUST BELOW HIS KNEE AND COVERED THAT AREA WITH THE NEW CAST.
--- NOTE | 2018-12-30 13:20 | NUR ---
PT WAS ATTEMPTING TO TALK ON THE PHONE. BECAME ANXIOUS, YELLING. "HELP ME BREATHE, HELP ME BREATHE". HIS NASAL CANNULA WAS ON. RESPIRATORY THERAPY IN THE ROOM. WE ATTEMPTED BIPAP. WE HELD IT TO HIS FACE AND HE WAS ABLE TO CATCH HIS BREATH BUT REFUSED TO WEAR IT. "I'M LOSING MY MIND, I'M HAVING AN ANXIETY ATTACK. HELP ME HELP ME". VENTURI 50% MASK APPLIED. DR GOMEZ NOTIFIED AND ORDERS RECEIVED. I'M STANDING IN HIS ROOM WITH HIM REASSURING HIM.
--- NOTE | 2018-12-30 13:40 | NUR ---
ORAL ATIVAN 1MG GIVEN PER ORDER. HE REPEATS "GOD HELP ME", "ARE YOU GOING TO HELP ME?" "HI HELP ME". HE THEN TAKES HIS OXYGEN OFF. "I'M LOSING MY MIND, PLEASE HELP ME".
--- NOTE | 2018-12-30 14:00 | NUR ---
DR GOMEZ NOTIFIED THAT NO HOME MEDS ARE ORDERED AND THAT PT ROUTINELY TAKES BUSPAR AND HYDROXYZINE AT HOME.
--- NOTE | 2018-12-30 14:05 | NUR ---
PHARMACIST NOTIFIED THAT VANCO TROUGH 24.9. DOSE FOR 1400 BEING HELD.
[2018-12-30 16:00] VITALS: BP 143/62
--- NOTE | 2018-12-30 17:35 | NUR ---
EARLIER ATIVAN HAS BEEN EFFECTIVE. PT RESTING EASILY WITH NASAL O2 ON, DOZING AT INTERVALS.
[2018-12-30 20:00] VITALS: BP 152/66
--- NOTE | 2018-12-30 23:29 | NUR ---
PATIENT REFUSES BIPAP. CURRENTLY ON5L/M SPO2 96% HR 98.
--- NOTE | 2018-12-30 23:30 | NUR ---
PATIENT REQUESTED SOMETHING FOR PAIN AND SOMETHING TO HELP HIM SLEEP. NORCO AND VISTARIL GIVEN. WILL MONITOR AND REASSESS.
[2018-12-31] VITALS: BP 161/64
--- NOTE | 2018-12-31 00:12 | NUR ---
24 HR chart check completed.
--- NOTE | 2018-12-31 03:29 | NUR ---
PATIENT VERY CONFUSED AT THIS TIME. PATIENT ASKING IF HES IN HEAVEN, STATES HE DOESNT WANT TO . PATIENT DOES YELL OUT.
[2018-12-31 04:02] VITALS: BP 117/68
[2018-12-31 05:53] LABS: BUN 12 mg/dl (7-24); CHLORIDE 101 mmol/L (98-107); CREATININE 0.58 mg/dL (0.70-1.30); POTASSIUM 4.4 mmol/L (3.5-5.1); SODIUM 140 mmol/L (136-145)
[2018-12-31 06:36] LABS: HEMATOCRIT 38.4 % (42.0-52.0); HEMOGLOBIN 12.2 g/dl (14.0-18.0); LYMPH # 0.5 10*3/uL (1.3-4.4); LYMPH % 6.8 % (27.0-41.0); MEAN CORPUSCULAR HGB 31.4 pg (27.0-31.0); MEAN CORPUSCULAR HGB CONC 31.8 g/dl (33.0-37.0); MEAN PLATELET VOLUME 9.6 fl (9.6-12.3); MONO # 0.4 10*3/uL (0.1-1.0); NEUT # 6.3 10*3/uL (2.3-7.9); NEUT % 87.5 % (47.0-73.0); PLATELET COUNT AUTOMATED 365 10*3/uL (130-400); RED BLOOD COUNT 3.88 10*6/uL (4.50-5.90); RED CELL DISTRI WIDTH 16.8 % (0-14.5); WHITE BLOOD COUNT 7.2 10*3/uL (4.8-10.8)
--- NOTE | 2018-12-31 06:40 | NUR ---
PATIENT OUT OF CONTROL, PULLING OFF HEART MONITOR, O2, AND PULSE OX. NOT ALLOWING ME TO FLUSH IV. CONTACTED DR DIEHL, NEW ORDERS FOR ATIVAN RECEIVED.
--- NOTE | 2018-12-31 06:44 | NUR ---
CRITICAL LABS RESULTS CALLED TO DR. CORADO.
--- NOTE | 2018-12-31 07:26 | NUR ---
Shift chart check completed.
[2018-12-31 08:00] VITALS: BP 158/74
--- NOTE | 2018-12-31 11:49 | NUR ---
PATIENT AWARE OF TRANSFER - AWAITING CALL. PATIENT'S BROTHER & SON AWARE FO TRANSFER PENDING. PODIATRY HERE TO SEE & REQUESTED DRESSING BE LEFT INTACT. DISCHARGE PICTURE TAKEN OF FOREHEAD BUT NOT BAUTISTA D/T CAST & REFUSED GROIN. PICC LINE INTACT & PATENT TO BOTH PORTS. MOVES ABOUT INDEPENDENTLY. DR GARCIA MADE ROUNDS.
[2018-12-31 12:00] VITALS: BP 153/71
--- NOTE | 2018-12-31 15:18 | NUR ---
Pt is still refusing the BiPap at this time. Complaining of SOB but content on 4L NC at 91%. Non productive cough. Encouraged deep breathing and cough.
--- NOTE | 2018-12-31 15:59 | NUR ---
SPOKE WITH [facility] ABOUT [facility]SFER - THEY DO NOT HAVE A BED CURRENTLY BUT HOPE TO HAVE ONE SHORTLY
[2018-12-31 16:00] VITALS: BP 152/59
--- NOTE | 2018-12-31 16:55 | NUR ---
REPORT CALLED TO [facility].
--- NOTE | 2018-12-31 17:18 | NUR ---
LEFT VIA AMBULANCE WITH ALL BELONGINGS
--- NOTE | 2019-01-03 20:24 | NUR ---
NOTIFIED DR. DONOVAN OF POSITIVE BLOOD CULTURE SHOWING BUDDING YEAST. NOTIFIED MACHINE ADJUSTER LEADER, CHARLENE WELL.
[2019-01-06 11:05] LABS: RESULT 1 Candida albicans (.); RESULT 2 Candida parapsilosis (.)
[2019-01-08 12:07] LABS: RESULT 1 Candida albicans (.)
[2019-01-13 14:05] LABS: AMPHOTERICIN B MIC 0.5 ug/mL (.); ITRACONAZOLE MIC 0.12 ug/mL (.); KETOCONAZOLE MIC 0.016 ug/mL (.)
[2019-01-16 11:56] LABS: YEAST ID Candida albicans
[2019-01-16 12:02] LABS: YEAST ID Candida parapsilosis (.)
[2019-01-16 12:03] LABS: FLUCYTOSINE MIC 0.12 ug/mL (.)
== END 2018-12-31 17:18 | disposition short-term general hospital (02) | DRG 871 ==
LOC: ED 21:48 → ICCU 12-29 01:47 → EDHOLD 12-29 01:47 → 4E 12-29 02:36 → ICCU 12-29 06:26
PROVIDERS: Internal Medicine; Internal Medicine Critical Care Medicine; Student in an Organized Health Care Education/Training Program; ADMIT Internal Medicine
PROC: 5A09357 Assistance with Respiratory Ventilation, Less than 24 Consecutive Hours, Continuous Positive Airway Pressure (ICD-10-PCS; principal; 2018-12-29)
DX: A41.9 Sepsis, unspecified organism (principal); G93.41 Metabolic encephalopathy; J96.02 Acute respiratory failure with hypercapnia; E43 Unspecified severe protein-calorie malnutrition; J96.01 Acute respiratory failure with hypoxia; I26.99 Other pulmonary embolism without acute cor pulmonale; J69.0 Pneumonitis due to inhalation of food and vomit; I24.8 Other forms of acute ischemic heart disease; J44.1 Chronic obstructive pulmonary disease with (acute) exacerbation; E87.4 Mixed disorder of acid-base balance; M86.271 Subacute osteomyelitis, right ankle and foot; Z53.29 Procedure and treatment not carried out because of patient's decision for other reasons; I27.20 Pulmonary hypertension, unspecified; R91.1 Solitary pulmonary nodule; F10.10 Alcohol abuse, uncomplicated; R29.6 Repeated falls; D53.9 Nutritional anemia, unspecified; R74.0 Nonspecific elevation of levels of transaminase and lactic acid dehydrogenase [LDH]; R73.9 Hyperglycemia, unspecified; F17.210 Nicotine dependence, cigarettes, uncomplicated; E55.9 Vitamin D deficiency, unspecified; K21.9 Gastro-esophageal reflux disease without esophagitis; F32.9 Major depressive disorder, single episode, unspecified; F41.1 Generalized anxiety disorder; G89.29 Other chronic pain; Z82.0 Family history of epilepsy and other diseases of the nervous system; Z79.899 Other long term (current) drug therapy; Z71.41 Alcohol abuse counseling and surveillance of alcoholic; Z71.6 Tobacco abuse counseling; Z87.11 Personal history of peptic ulcer disease; Z68.29 Body mass index [BMI] 29.0-29.9, adult

== ENCOUNTER 2019-04-24 19:34 | Inpatient (IN) | payer OTHER ==
[~2019-04-24] VITALS: Ht 190.5 cm; Wt 102.7 kg
--- NOTE | ~2019-04-24 | EKG ---
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 : 1970 Requested By: ROSINA ESQUIVEL Order Number: [id number] Reading MD: Catalina Banks MD Measurements Intervals [place] Rate: 82 P: 57 UT: 142 QRS: -27 QRSD: 111 T: 66 QT: 404 QTc: 472 Interpretive Statements Sinus rhythm Borderline left axis deviation RSR' in V1 or V2, right VCD or RVH Compared to ECG 12/28/2018 22:43:09 Right ventricular hypertrophy now present RSR' in V1 or V2 now present Sinus tachycardia no longer present Atrial premature complex(es) no longer present T-wave abnormality no longer present Electronically Signed On 04-25-2019 6:02:23 PDT by Catalina Banks MD CM:EKGRPT:ELECTROCARDIOGRAM REPORT ROSINA ESQUIVEL MD EPIPHANY DRAFT REPORT ROSINA ESQUIVEL MD
--- NOTE | ~2019-04-24 | PR ---
[place], [place] PROGRESS NOTE NAME: DOTTIE LEONARD UNIT #: [id number] ROOM: 426 DOCTOR: JAKE ORTEGA MD,ROMERO BIRTHDATE: [birth year] DOS: 04/26/2019 PULMONARY PROGRESS NOTE SUBJECTIVE: He has been doing well with current medical management. He has been currently getting the BiPAP intermittently during the day, as per him further the BiPAP used last night continuously. He has not been noted symptoms of chest pain. Still noted edema of the lower extremity. Denies symptoms of chest pain or hemoptysis. Mental status noted normal this morning. He has not been noted any symptoms of fever, chills or any abdominal pain. The patient has not been noted headache, diplopia. Remaining systems were reviewed, they were noted all negative. OBJECTIVE: VITAL SIGNS: Normal temperature, respiratory rate 14, heart rate 78, blood pressure 119/44. Pulse ox saturation on 6 liters nasal canula 94% saturation recorded. HEENT: Examination shows head was atraumatic. Eyes nonicterus. NECK: Supple. CARDIOVASCULAR: S1, S2 audible. LUNGS: The patient noted decreased breath sounds with occasional crackles, no wheezing. ABDOMEN: Soft, nontender. EXTREMITIES: The patient with 2-3+ pitting edema with superficial area of the wound was also noted with some crusting of those areas. CENTRAL NERVOUS SYSTEM: Nonfocal. MUSCULOSKELETAL: Without acute deformities. LABORATORY DATA: BMP done this morning for the patient was noted normal BUN and creatinine. CO2 was 37. IMPRESSION: 1. The patient with resolving acute on chronic hypercapnia hypoxic respiratory failure. 2. Chronic obstructive pulmonary disease. 3. Acute congestive heart failure, peripheral edema. 4. Superficial wound infection cannot be excluded. 5. Metabolic alkalosis secondary to chronic hypercarbia. PLAN OF MANAGEMENT: The patient was planned transfer to a telemetry floor. Obtain arterial blood gas to assess improvement in ventilatory status. Weaning off from the BiPAP during the daytime will be continued. The patient will be kept on the BiPAP 2 hours on, 3 hours off during the daytime, continue at nighttime. Continue diuretic, bronchodilators, antibiotic, other therapy and plan of care. Usual care with additional treatment changes will be recommended based on progression of the illness. [place], [place] PROGRESS NOTE NAME: AISHADOTTIE UNIT #: [id number] ROOM: 426 DOCTOR: JAKE ORTEGA MD,ROMERO BIRTHDATE: [birth year] ROMERO JOSEPH MD CM:PNTRANS 1400 [id number] ROMERO ORTEGA MD 04/26/19 2327 interface
--- NOTE | ~2019-04-24 | EKG ---
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 : 1970 Requested By: ROSINA ESQUIVEL Order Number: [id number] Reading MD: Catalina Banks MD Measurements Intervals [place] Rate: 86 P: 64 MT: 141 QRS: -35 QRSD: 119 T: 67 QT: 406 QTc: 486 Interpretive Statements Sinus rhythm Incomplete right bundle branch block Baseline wander in lead(s) V3,V5,V6 Compared to ECG 12/28/2018 22:43:09 Incomplete right bundle-branch block now present Sinus tachycardia no longer present Atrial premature complex(es) no longer present T-wave abnormality no longer present Electronically Signed On 04-25-2019 6:05:11 PDT by Catalina Banks MD CM:EKGRPT:ELECTROCARDIOGRAM REPORT [id number] ROSINA ESQUIVEL MD EPIPHANY DRAFT REPORT ROSINA ESQUIVEL MD
--- NOTE | ~2019-04-24 | CON ---
[place], [place] REPORT OF CONSULTATION [facility]: [facility]ARD [id number] UNIT #: [id number] ROOM: [facility] DOCTOR: ROMERO POSADA MD BIRTHDATE: [birth year] DOS: 04/25/2019 PULMONARY CRITICAL CARE CONSULTATION CONSULTATION REQUESTED: For the assessment of the current acute respiratory failure. HISTORY OF PRESENT ILLNESS: This is a 49-year-old white male who has been known to me from the past. He has been admitted to the hospital and treated for in 03/2019, at that time, the patient has been treated for the medical management of oxali-yo-xfoyexo hypercapnic hypoxemic respiratory failure noted with a small pulmonary embolism involving the right lower pulmonary arterial branches involvement with acute aspiration pneumonia. Has been noted to have osteomyelitis of the leg. The patient has been admitted to the hospital under care of the hospitalist service on the date of 04/24/2019. He has been brought to the hospital, as the patient has been noted with difficulty of oxygen maintenance and developed progressive cough and shortness of breath. The cough has been described to be dry, unable to expectorate any sputum. The patient states he has not been doing well. He had not been doing well at this time and also developed progressive edema of bilateral lower extremities. He has not been noted any symptoms of chest pain. The patient has not been seen by Podiatry services since he has been noted with loss of his health insurance coverage as stated by the medical manager who has taken the history. REVIEW OF SYSTEMS: CONSTITUTIONAL: Reported as symptoms of fatigue and tiredness, not sure about fever or chills. EYES: Denies any burning, redness, or tenderness. EARS, NOSE, AND THROAT SYMPTOMS: No sore throat, hoarseness, otalgia, epistaxis. CARDIOVASCULAR: Denies angina pain, was noted with chronic edema of lower extremity, which has been noted worsened. symptoms of palpitations stated. GASTROINTESTINAL SYMPTOMS: Denies dysphagia, nausea, vomiting, diarrhea, abdominal pain, hematemesis, melena, or hematochezia. SKIN: Reported with oozing of the skin of the lower extremity. GENITOURINARY SYMPTOMS: No dysuria, suprapubic pain, or hematuria. MUSCULOSKELETAL: There were no acute joint pain or deformities reported. CENTRAL NERVOUS SYSTEM: No dizziness, headache, diplopia, and syncopal episodes. Remaining systems were reviewed. They were noted to be all negative. PAST MEDICAL HISTORY: Known with history of: 1. Chronic obstructive pulmonary disease. 2. Acute pulmonary embolism that has been treated in March. 3. Avascular necrosis of the bone with osteomyelitis of the right lower extremity and cellulitis of the right lower leg by history. 4. Chronic nicotine dependence. 5. General anxiety disorder. [place], [place] REPORT OF CONSULTATION NAME: DOTTIE LEONARD UNIT #: [id number] ROOM: [facility] DOCTOR: JAKE ORTEGA MD,ROMERO BIRTHDATE: [birth year] 6. Gastroesophageal reflux. 7. Major depression disorder. 8. Peptic ulcer disease. 9. Vitamin D deficiency. 10. Nonadherence for the management of multiple medical illnesses, lack of health insurance coverage. PAST SURGICAL HISTORY: Surgery of the ankle of right lower extremity, hardware in place. SOCIAL HISTORY: He does not have any history of alcohol use, history of recreational marijuana use, and intermittent tobacco use noted, long-term less than a pack of cigarettes per day. FAMILY HISTORY: The patient's father with complication of accident. Mother with complication of multiple sclerosis. CURRENT MEDICATIONS: Current medications, which has been administered at this hospitalization were noted as trazodone, gabapentin, thiamin, Carafate, loratadine, vitamin D, Xarelto 20 mg daily, Solu-Medrol 60 mg IV b.i.d., Pulmicort Respules 0.5 mg b.i.d., DuoNeb q.4 hours, intravenous vancomycin, lorazepam, IV Zosyn, and some other p.r.n. meds. DRUG ALLERGIES: Reported no known drug allergies. PHYSICAL EXAMINATION: GENERAL: A 49-year-old male patient who has been currently noted on the BiPAP setting has been change as for consultation for the assessment of the respiratory failure with hypercapnia. Height was noted 6 feet 3 inches, weight of 226 pounds, BMI 28.3. VITAL SIGNS: For the patient recorded as a normal temperature since admission in the last 12 hours; respiratory rate between 17-24; heart rate of 89, noted 115 on admission; blood pressure at 8 o' clock 133/50, earlier noted as normal blood pressure. Intake recorded in 12 hours as intake of 550 and output 1550 mL. Pulse oxygen saturation on 40% with the BiPAP settings of 18/10 as 94% on 6 liter nasal cannula 90% previously. HEENT: Examination shows head was atraumatic. Eyes nonicterus. Wqov-ct-[id number] obesity. Head was atraumatic. CARDIOVASCULAR: S1, S2 is audible. LUNGS: The patient was noted diffuse reduction of the breath sounds bilaterally. Expiratory wheezing was present. ABDOMEN: Soft, nontender. Bowel sounds present. EXTREMITIES: The patient noted severe edema with oozing of certain wounds of the lower extremities. MUSCULOSKELETAL: Without acute deformities. CENTRAL NERVOUS SYSTEM: Noted intact. LABORATORY DATA: The patient's CBC 04/24/2019 in the Emergency Department WBC 8.5, hemoglobin 13.2, and platelet count was recorded as 350,000. The PT, PTT yesterday was noted as normal. CMP yesterday as BUN normal, creatinine normal, [place], [place] REPORT OF CONSULTATION NAME: DOTTIE LEONARD UNIT #: [id number] ROOM: [facility] DOCTOR: JAKE ORTEGA MD,[facility] BIRTHDATE: [birth year] CO2 was 37. CBC that was done this morning was noted, WBC count 6.1, hemoglobin 12.2, and platelet count 336,000. CMP that was done, noted normal BUN and creatinine. CO2 was 36. Albumin 2.8. Arterial blood gas that was done at 22:50 hours on 6 liters, pH of 7.32, pCO2 of 74, pO2 of 58 at that time. The arterial blood gas that was done on 04/25/2019 at 2:37 a.m., pH of 7.30, pCO2 of 74, pO2 of 127, BiPAP settings changed from 12/8 and the arterial blood gas done this morning on the BiPAP 40% oxygen settings of 18/10, pH of 7.36, pCO2 of 66.9, pO2 59.9. The chest x-ray that was done yesterday, only 1 view shows prominent pulmonary artery noted. Upper portion of the chest was obscured by the chin. There was no pleural fluid noted or any acute pulmonary infiltration. IMPRESSION: 1. The patient who has been currently admitted to the hospital, finding consistent with [id number] hypercapnic hypoxemic respiratory failure as a result of acute exacerbation of chronic obstructive pulmonary disease and possibility of cor pulmonale. The patient noted moderate pulmonary hypertension on previous echocardiogram 12/2018. Further progression if occurs, can be assessed at this time, but needs to be assessed with possible repeat echocardiogram. 2. Chronic nicotine dependence. 3. Metabolic alkalosis secondary to chronic hypercarbia was also noted. 4. Rule out deep venous thrombosis, bilateral lower extremities. PLAN OF MANAGEMENT: The patient will be continued on the BiPAP at the current settings except a break for 1 hour only for the meals. Otherwise, continue to use of the BiPAP as recommended. Diuretic therapy with bronchodilators. Continuation of the current bronchodilators. The patient has been receiving broad spectrum intravenous antibiotics. Cultures of the wound to be obtained and deescalating antibiotics sooner as the culture become available. There was no evidence of acute pneumonia. Continue chronic anticoagulation with Xarelto as well with reduction of corticosteroids based on improvement in symptoms. Keep the patient in intensive care unit for further care. In case of worsening or progressive respiratory failure, intubation and mechanical ventilation will be suggested in this scenario. Other plan of management and additional treatment changes will be made based on progression of the illness. Supportive care. Usual medical management therapy, plan of care. Total time in pulmonary critical care evaluation, management, and consultation was 40 minutes. [place], [place] REPORT OF CONSULTATION NAME: DOTTIE LEONARD UNIT #: [id number] ROOM: [facility] DOCTOR: ROMERO POSADA MD BIRTHDATE: [birth year] ROMERO JOSEPH MD CM:CONSTR:REPORT OF CONSULTATION 1356 04/26/19 0016 interface
--- NOTE | ~2019-04-24 | PR ---
[place], [place] PROGRESS NOTE NAME: DOTTIE LEONARD [place] UNIT #: [id number] ROOM: 426 DOCTOR: ROMERO POSADA MD BIRTHDATE: [birth year] DOS: 04/27/2019 PULMONARY PROGRESS NOTE SUBJECTIVE: The patient was noted comfortable at this time, resting in the bed this morning of assessment, has not been noted any ongoing acute complaints, has been using the BiPAP this morning of assessment. Appeared to be comfortable and currently staying in the telemetry floor. OBJECTIVE: VITAL SIGNS: For the patient which were recorded shows a temperature noted as normal. Respiratory rate recorded as 20, heart rate of 102, blood pressure 158/74. The pulse oxygen saturation recorded on 6 liters nasal cannula 99% saturation. HEENT: Head was atraumatic. Eyes nonicterus. NECK: Supple. CARDIOVASCULAR: S1, S2 audible. LUNGS: The patient was noted without any wheeze or crackles at the present time. ABDOMEN: Soft, nontender. EXTREMITIES: No new change. Currently noted with same edema with other abnormal areas of the skin with superficial ulcers. LABORATORY DATA: BMP today, normal BUN and creatinine. Potassium 3.4. IMPRESSION: 1. The patient with gradual, but progressive resolution noted for acute on chronic hypercapnic and hypoxic respiratory failure at this time. 2. The patient with chronic obstructive pulmonary disease. 3. Peripheral edema, congestive heart failure and other medical illnesses. PLAN OF CARE: No changes from the pulmonary standpoint at this time. Continue the patient's current therapy, plan of management as in progress. Assess the patient for half-way facility. Maximize the medical management of congestive heart failure and others as well as debility. [place], [place] PROGRESS NOTE NAME: AISHADOTTIE UNIT #: [id number] ROOM: 426 DOCTOR: ROMERO POSADA MD BIRTHDATE: [birth year] ROMERO JOSEPH MD CM:PNTRANS 1400 [id number] ROMERO ORTEGA MD 04/27/19 1409 interface
--- NOTE | ~2019-04-24 | EKG ---
[place], [place] ELECTROCARDIOGRAM REPORT NAME: DOTTIE LEONARD UNIT #: [id number] ROOM: [facility] DOCTOR: EPIPHANY DRAFT REPORT BIRTHDATE: [birth year] [facility] Test Date: 2019-04-24 Test Time: 19:37:45 Pat Name: DOTTIE LEONARD Department: Room: [facility] Gender: M [employer]: : 1970 Requested By: ROSINA ESQUIVEL Order Number: [id number] Reading MD: Catalina Banks MD Measurements Intervals [place] Rate: 109 P: 80 CT: 140 QRS: -50 QRSD: 106 T: 80 QT: 362 QTc: 488 Interpretive Statements Sinus tachycardia LAD, consider left anterior fascicular block Abnormal R-wave progression, early transition Borderline prolonged QT interval Compared to ECG 12/28/2018 22:43:09 Atrial premature complex(es) no longer present T-wave abnormality no longer present Electronically Signed On 04-25-2019 6:01:13 PDT by Catalina Banks MD CM:EKGRPT:ELECTROCARDIOGRAM REPORT 36 [id number] ROSINA ESQUIVEL MD EPIPHANY DRAFT REPORT ROSINA ESQUIVEL MD
--- NOTE | ~2019-04-24 | PR ---
[place], [place] PROGRESS NOTE NAME: DOTTIE LEONARD UNIT #: [id number] ROOM: 426 DOCTOR: JAKE ORTEGA MD,ROMERO BIRTHDATE: [birth year] DOS: 04/28/2019 SUBJECTIVE: The patient was noted comfortable at this time, resting in the bed this morning of assessment. He has not been reporting any ongoing acute new respiratory complaints. Denies symptoms of fever or chills. Denies symptoms of hemoptysis. Used the BiPAP last night. Oxygen supplementation continue 3 liters nasal cannula. OBJECTIVE: VITAL SIGNS: Normal temperature, respiratory rate 20, heart rate 101, blood pressure 160/81, pulse ox saturation on 3 liters nasal cannula 95% saturation recorded. HEENT: Mild to moderate obesity. NECK: Supple. CARDIOVASCULAR: S1, S2 audible. LUNGS: Without wheeze or crackles. ABDOMEN: Soft, nontender. EXTREMITIES: Chronic changes with dryness of the skin, superficial ulcer with ____. LABORATORY DATA: BMP was recorded as glucose 214, CO2 of 39, remaining electrolytes normal. Wound culture Staph aureus. CBC: WBC count 6.0, hemoglobin 12.9, platelet count normal. IMPRESSION: The patient with gradual progressive resolution of acute on chronic hypoxic and hypercapnic respiratory failure, and chronic obstructive pulmonary disease, exacerbation all resolving. PLAN OF MANAGEMENT: No change in pulmonary standpoint, the patient could be considered for home discharge as desired. Other therapy, plan of management. Continue as previously ordered. ROMERO JOSEPH MD CM:PNTRANS [id number] ROMERO ORTEGA MD 04/28/19 1356 interface
[2019-04-24 19:53] LABS: BASO # 0.1 10*3/uL (0.0-0.1); BASO % 0.6 % (0.0-1.0); EOS # 0.4 10*3/uL (0.0-0.4); EOS % 4.2 % (1.0-4.0); HEMATOCRIT 42.3 % (42.0-52.0); HEMOGLOBIN 13.2 g/dl (14.0-18.0); LYMPH # 1.6 10*3/uL (1.3-4.4); LYMPH % 18.3 % (27.0-41.0); MEAN CELL VOLUME 103.4 fl (80.0-94.0); MEAN CORPUSCULAR HGB 32.3 pg (27.0-31.0); MEAN CORPUSCULAR HGB CONC 31.2 g/dl (33.0-37.0); MEAN PLATELET VOLUME 9.1 fl (9.6-12.3); MONO # 1.1 10*3/uL (0.1-1.0); MONO % 12.4 % (3.0-9.0); NEUT # 5.5 10*3/uL (2.3-7.9); NEUT % 64.1 % (47.0-73.0); PLATELET COUNT AUTOMATED 350 10*3/uL (130-400); RED BLOOD COUNT 4.09 10*6/uL (4.50-5.90); WHITE BLOOD COUNT 8.5 10*3/uL (4.8-10.8)
[2019-04-24 20:06] LABS: INTERNATIONAL NORM RATIO 0.9 (2.0-3.5)
[2019-04-24 20:22] LABS: ALBUMIN 3.4 gm/dl (3.1-4.5); ALKALINE PHOSPHATASE 95 U/L (45-117); BUN 10 mg/dl (7-24); CHLORIDE 97 mmol/L (98-107); CREATININE 0.65 mg/dL (0.70-1.30); POTASSIUM 3.8 mmol/L (3.5-5.1); SGOT/AST 32 IU/L (3-35); SGPT/ALT 28 U/L (12-78); SODIUM 137 mmol/L (136-145); TOTAL PROTEIN 7.6 gm/dL (6.4-8.2)
[2019-04-24 20:24] LABS: TROPONIN I < 0.015 ng/ml (<0.045)
[2019-04-24] MEDS ORDERED: XARE20MG PO (22:42)
[2019-04-24 22:54] LABS: ABG BASE EXCESS 9.6 mmol/L (-2.0-2.0); ABG O2 SATURATION 93.4 % (95-97); ARTERIAL BLOOD GAS PH 7.325 (7.35-7.45); ARTERIAL BLOOD GAS PO2 58.8 mmHg (80-90)
[2019-04-24 22:57] LABS: ARTERIAL BLOOD GAS PCO2 74.9 mmHg (35-45)
[2019-04-24 23:58] VITALS: BP 141/67
[2019-04-25 02:41] LABS: ABG BASE EXCESS 7.2 mmol/L (-2.0-2.0); ABG HCO3 35.8 mmol/l (22-26); ABG O2 SATURATION 98.9 % (95-97); ARTERIAL BLOOD GAS PH 7.3 (7.35-7.45)
[2019-04-25 02:42] LABS: ARTERIAL BLOOD GAS PCO2 74.3 mmHg (35-45)
[2019-04-25 04:00] VITALS: BP 135/71
[2019-04-25 06:09] LABS: ALBUMIN 2.8 gm/dl (3.1-4.5); ALKALINE PHOSPHATASE 75 U/L (45-117); BUN 7 mg/dl (7-24); CHLORIDE 101 mmol/L (98-107); CREATININE 0.41 mg/dL (0.70-1.30); HEMOGLOBIN 12.2 g/dl (14.0-18.0); MEAN CELL VOLUME 101.3 fl (80.0-94.0); MEAN CORPUSCULAR HGB 31.7 pg (27.0-31.0); MEAN CORPUSCULAR HGB CONC 31.3 g/dl (33.0-37.0); MEAN PLATELET VOLUME 9.2 fl (9.6-12.3); PHOSPHOROUS 2.7 mg/dL (2.5-4.9); PLATELET COUNT AUTOMATED 336 10*3/uL (130-400); POTASSIUM 4.2 mmol/L (3.5-5.1); RED BLOOD COUNT 3.85 10*6/uL (4.50-5.90); RED CELL DISTRI WIDTH 16.7 % (0-14.5); SGOT/AST 24 IU/L (3-35); SGPT/ALT 21 U/L (12-78); SODIUM 139 mmol/L (136-145); TOTAL PROTEIN 6.4 gm/dL (6.4-8.2); WHITE BLOOD COUNT 6.1 10*3/uL (4.8-10.8)
[2019-04-25 06:22] LABS: ACT PARTIAL THROMBO TIME 28.4 SECONDS (20.0-32.1); INTERNATIONAL NORM RATIO 0.9 (2.0-3.5)
[2019-04-25 06:51] LABS: ATYPICAL LYMPHS 1 % (0-0); TOTAL CELLS COUNTED 100 #CELLS
[2019-04-25 06:52] LABS: PLATELET SUFFICIENCY NORMAL (NORMAL); POLYCHROMASIA SLIGHT; STOMATOCYTE FEW; TARGET CELLS FEW
[2019-04-25 07:22] LABS: ABG BASE EXCESS 9.8 mmol/L (-2.0-2.0); ABG HCO3 37.2 mmol/l (22-26); ABG O2 SATURATION 92.7 % (95-97); ARTERIAL BLOOD GAS PCO2 66.9 mmHg (35-45); ARTERIAL BLOOD GAS PH 7.363 (7.35-7.45); ARTERIAL BLOOD GAS PO2 59.9 mmHg (80-90)
[2019-04-25 07:57] LABS: VITAMIN D, 25-HYDROXY 43.1 ng/mL (30-100)
[2019-04-25 08:00] VITALS: BP 133/58
[2019-04-25 12:00] VITALS: BP 126/60
[2019-04-25 16:00] VITALS: BP 142/67
[2019-04-25 20:00] VITALS: BP 141/59
[2019-04-26] VITALS: BP 140/65
[2019-04-26 04:00] VITALS: BP 145/72
[2019-04-26 05:50] LABS: BUN 8 mg/dl (7-24); CHLORIDE 97 mmol/L (98-107); CREATININE 0.53 mg/dL (0.70-1.30); POTASSIUM 3.9 mmol/L (3.5-5.1); SODIUM 137 mmol/L (136-145)
[2019-04-26 08:00] VITALS: BP 119/44
[2019-04-26 12:00] VITALS: BP 129/60
[2019-04-26 14:18] LABS: ABG BASE EXCESS 11.4 mmol/L (-2.0-2.0); ABG HCO3 37.8 mmol/l (22-26); ABG O2 SATURATION 89.4 % (95-97); ARTERIAL BLOOD GAS PCO2 59.1 mmHg (35-45); ARTERIAL BLOOD GAS PH 7.424 (7.35-7.45); ARTERIAL BLOOD GAS PO2 58.1 mmHg (80-90)
[2019-04-26 16:00] VITALS: BP 131/51
[2019-04-26] MEDS ORDERED: STOOL SOFTENER100 M3 PO (22:32)
[2019-04-27] VITALS: BP 137/63
[2019-04-27 06:37] LABS: BUN 13 mg/dl (7-24); CHLORIDE 98 mmol/L (98-107); POTASSIUM 3.4 mmol/L (3.5-5.1); SODIUM 139 mmol/L (136-145)
[2019-04-27 08:00] VITALS: BP 158/74
[2019-04-27 12:00] VITALS: BP 144/69
[2019-04-27] MEDS ORDERED: DOXYCYCLINE100 M3 PO (12:26)
[2019-04-27] MEDS ORDERED: PREDNISONE10 MG PO (12:26)
[2019-04-27 16:00] VITALS: BP 152/68
[2019-04-27 20:00] VITALS: BP 163/72
[2019-04-28] VITALS: BP 160/81
[2019-04-28 06:18] LABS: HEMATOCRIT 41.9 % (42.0-52.0); HEMOGLOBIN 12.9 g/dl (14.0-18.0); MEAN CELL VOLUME 102.7 fl (80.0-94.0); MEAN CORPUSCULAR HGB 31.6 pg (27.0-31.0); MEAN CORPUSCULAR HGB CONC 30.8 g/dl (33.0-37.0); MEAN PLATELET VOLUME 9.2 fl (9.6-12.3); PLATELET COUNT AUTOMATED 394 10*3/uL (130-400); RED BLOOD COUNT 4.08 10*6/uL (4.50-5.90); RED CELL DISTRI WIDTH 16.7 % (0-14.5)
[2019-04-28 06:45] LABS: BUN 13 mg/dl (7-24); CHLORIDE 99 mmol/L (98-107); CREATININE 0.71 mg/dL (0.70-1.30); POTASSIUM 3.8 mmol/L (3.5-5.1); SODIUM 141 mmol/L (136-145)
[2019-04-28 07:15] LABS: PLATELET SUFFICIENCY NORMAL (NORMAL); POLYCHROMASIA SLIGHT; ROULEAUX SLIGHT; TOTAL CELLS COUNTED 100 #CELLS
[2019-04-28 07:16] LABS: SCHISTOCYTES FEW
[2019-04-28 07:17] LABS: STOMATOCYTE FEW; TARGET CELLS FEW
[2019-04-28 12:00] VITALS: BP 153/80
== END 2019-04-28 16:47 | disposition home health service (06) | DRG 871 ==
LOC: ED 19:34 → 4E 20:23 → EDHOLD 20:23 → ICCU 20:23 → 5E 21:32 → ICCU 23:43 → 4E 04-26 14:40
PROVIDERS: Emergency Medicine Emergency Medical Services; Family Medicine; Internal Medicine Critical Care Medicine; Student in an Organized Health Care Education/Training Program; ADMIT Internal Medicine
PROC: 5A09357 Assistance with Respiratory Ventilation, Less than 24 Consecutive Hours, Continuous Positive Airway Pressure (ICD-10-PCS; principal; 2019-04-25)
PROC: 5A09357 Assistance with Respiratory Ventilation, Less than 24 Consecutive Hours, Continuous Positive Airway Pressure (ICD-10-PCS; 2019-04-26)
DX: A41.9 Sepsis, unspecified organism (principal); E43 Unspecified severe protein-calorie malnutrition; J96.22 Acute and chronic respiratory failure with hypercapnia; J96.21 Acute and chronic respiratory failure with hypoxia; J44.1 Chronic obstructive pulmonary disease with (acute) exacerbation; E87.3 Alkalosis; L03.116 Cellulitis of left lower limb; L03.115 Cellulitis of right lower limb; M87.877 Other osteonecrosis, right toe(s); I50.9 Heart failure, unspecified; I87.2 Venous insufficiency (chronic) (peripheral); R65.20 Severe sepsis without septic shock; G62.9 Polyneuropathy, unspecified; I27.20 Pulmonary hypertension, unspecified; D53.9 Nutritional anemia, unspecified; R73.9 Hyperglycemia, unspecified; R26.2 Difficulty in walking, not elsewhere classified; K21.9 Gastro-esophageal reflux disease without esophagitis; F32.9 Major depressive disorder, single episode, unspecified; F41.1 Generalized anxiety disorder; G89.29 Other chronic pain; F17.210 Nicotine dependence, cigarettes, uncomplicated; Z71.6 Tobacco abuse counseling; Z82.0 Family history of epilepsy and other diseases of the nervous system; Z82.3 Family history of stroke; Z99.81 Dependence on supplemental oxygen; Z86.711 Personal history of pulmonary embolism; Z79.899 Other long term (current) drug therapy; Z79.01 Long term (current) use of anticoagulants; Z91.19 Patient's noncompliance with other medical treatment and regimen; Z87.11 Personal history of peptic ulcer disease; Z68.28 Body mass index [BMI] 28.0-28.9, adult